=== PATIENT | male | born 2005 | race Caucasian/White ===

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

== ENCOUNTER 2024-06-27 03:59 | Emergency (ER) | payer MEDICAID, SELFPAY ==
[2024-06-27 04:05] VITALS: BP 120/74; BP 123/74; PULSE 76; PULSE 80; RESP 20; TEMP 36.3; O2SAT 97; O2SAT 98; BMI 20.9
--- NOTE | 2024-06-27 04:28 | MHC.EDTECH ---
Patient biba vitals taken ,Patient was change into hospital attire ,all Patient belongings are locked up in decon .Patient had 2 sandwiches and juan john for snack .
--- NOTE | 2024-06-27 04:29 | ED_ITS ---
HPI - Psych General Chief Complaint: Psychiatric Symptoms Stated Complaint: depression Time Seen by Provider: 06/27/24 04:25 Source: patient Mode of arrival: EMS Limitations: no limitations History of Present Illness ED Provider: shawn SENIOR Narrative: Patient's history of depression PTSD substance abuse homeless released from the detention on 06/11 unable to get his life together feel depressed sometimes feels suicidal using drugs homeless asking for the food on arrival has used crack cocaine and Eric dust denies any SI or HI at this time but sometimes he feels that he may overdose feels unsafe Related Data Home Medications ?Medication ?Instructions ?Recorded ?Confirmed No Known Home Meds 10/31/23 06/27/24 Allergies Allergy/AdvReac Type Severity Reaction Status Date / Time bee pollen [bee stings] Allergy Unknown Verified 06/27/24 04:39 haloperidol [From Haldol] AdvReac Swelling Verified 06/27/24 04:39 Review of Systems 2 Review of Systems: Yes all other systems are reviewed and are negative PMFSH Past Medical History Medical History Fentanyl use disorder, moderate Cocaine abuse Asthma Social History Social History Alcohol intake: current Alcohol intake frequency: 0-2 drinks per day Alcohol type: hard liquor Smoked in Last 30 Days: Yes Use of substances other than those prescribed or required for medical reasons: Yes Substance Use Type: Crack/Cocaine Substance Use Frequency: Chronic Longstanding Last Used Substance: Just Prior to Admission Advance Directives: No Advance Directives Information Provided: Yes Do you have a plan to hurt others: No Plan Physical Exam 2 Vital Signs: Vital Signs: Last Vital Signs Temp 97.4 F 06/27/24 04:05 Pulse 76 06/27/24 04:05 Resp 20 06/27/24 04:05 BP 123/74 06/27/24 04:05 Pulse Ox 97 06/27/24 04:05 O2 Del Method Room Air 06/27/24 04:05 BMI result Body Mass Index 20.9 Appearance: Alert. Oriented X3. No acute distress. Anxious Eyes: PERRLA, No Nystagmus ENT: Pharynx normal. Oral Mucosa moist Neck: Normal inspection. Neck supple. CVS: Normal heart rate and rhythm. Pulses normal. Respiratory: No respiratory distress. Equal air entry bilateral, no wheezing/rales/rhonchi Abdomen: Soft and nontender. Bowel sounds are present, no mass palpable, no CVA tenderness Skin: Skin warm and dry. Normal skin color. Normal skin turgor. Extremities: No lower extremity edema. No calf tenderness superficial scratch leona on the left forearm Psych: Anxious denies any hallucination or delusions feels sometimes suicidal no homicidal Neuro: Oriented X 3. No motor deficit. No sensory deficit.No cerebellar signs , cranial nerves II-XII intact Medications Administered Generic Name Dose Route Start Last Admin Trade Name Freq PRN Reason Stop Dose Admin Nicotine Polacrilex 2 mg 06/27/24 05:30 06/27/24 05:51 Nicotine Polacrilex 2 Mg Gum BUCCAL 2 mg Q2H PRN Administration Nicotine Cravings Medical Decision Making Medical Decision Making [facility] Narrative: Patient with hx of depression, PTSD, bipolar disorder, polysubstance abuse comes here for increased depression asking for some help will get care team involved for further evaluation and disposition Lab Data [facility] Lab Attestation statement: I reviewed the patient's lab results. 06/27/24 05:01 06/27/24 05:01 Labs: Lab Results 06/27/24 Range/Units 05:01 WBC 10.0 (4.8-10.8) X10*3/uL RBC 4.92 (4.60-5.80) X10*6/uL Hgb 15.3 (14.0-18.0) g/dl Hct 43.8 (42.0-52.0) % MCV 89.0 (80.0-98.0) fL MCH 31.1 (27.0-33.0) pg MCHC 34.9 (31.0-36.0) g/dl RDW 12.5 (11.0-16.0) % Plt Count 194 (160-400) X10*3/uL MPV 11.0 (9.4-12.4) fL Immature Gran % (Auto) 0.4 (0.0-0.4) % Neut % (Auto) 70.7 (45-73) % Lymph % (Auto) 20.4 (20-40) % [place] % (Auto) 7.5 (2-11) % Eos % (Auto) 0.5 (0-4) % Baso % (Auto) 0.5 (0-2) % Lymph # (Auto) 2.0 (1.2-4.9) X10*3/uL [place] # (Auto) 0.8 (0.1-1.2) X10*3/uL Eos # (Auto) 0.1 (0.0-0.4) X10*3/uL Baso # (Auto) 0.1 (0.0-0.2) X10*3/uL Abs Immat Gran (auto) 0.04 H (0.00-0.03) X10*3/uL Absolute Neuts (auto) 7.0 (2.0-8.3) x10*3/uL Absolute Nucleated RBC 0.000 (0.0-0.012) X10*3/uL Nucleated RBC % (auto) 0.0 (0.0-0.2) /100WBC Sodium 141 (135-145) mmol/L Potassium 4.0 (3.3-5.1) mmol/L Chloride 106 (96-108) mmol/L Carbon Dioxide 26 (22-29) mmol/L Anion Gap 13 (12-20) BUN 12 (9-16) mg/dL Creatinine 1.15 (0.5-1.4) mg/dL Estim Creat Clear Calc 98.6 Estimated GFR > 60 Random Glucose 95 (60-115) mg/dL Calcium 9.9 (8.4-10.2) mg/dL Total Bilirubin 1.1 H (0.0-1.0) mg/dL AST 19 (5-37) U/L ALT 17 (0-40) U/L Alkaline Phosphatase 93 (39-117) U/L Total Protein 7.9 (6.5-8.0) g/dL Albumin 4.8 (3.5-5.0) g/dL Ethyl Alcohol < 10 mg/dL COVID-19 (ELVIE) Negative (Negative) COVID-19 Clin Com See Note Discharge Plan Discharge Clinical Impression: Depression, Suicidal ideation, Polysubstance abuse Patient Disposition: Still a Patient Prescriptions: No Action No Known Home Meds Interventions: [place]-Suicide Risk Severity Scale Last Done: 06/27/24 04:42 Print Language: [place] Citizen
--- NOTE | 2024-06-27 04:46 | PC.NURSE ---
pt [place]CENA from streets, homeless, stating he wants to get his life together. recently released from [facility], says he is starting a new job at the [employer] in [place]. Denying SI/HI to this RN. however, pt requesting outpatient resources for mental health counseling and drug detox. on arrival, security called to bedside for changeover and belongings secured into decon by security. pt began in ED room 8 however was conversing with other psychiatric patient in 6H in hallway and both patients violating privacy. care team called to bedside to provide outpatient resources so that pt could be discharged, however as care team entered room patient was scratching to self harm his forearm and told care team i am going to kill myself Pt then brought into behavioral health pod by security and chargemaster specialist and all belongings/spoon/food removed from patient.
--- NOTE | 2024-06-27 04:46 | PC.NURSE ---
pt [place] from streets, homeless, stating he wants to get his life together. recently released from senior care on 06/11, says he is starting a new job at the [employer] in [place]. Denying SI/HI to this RN. however, pt requesting outpatient resources for mental health counseling and drug detox. on arrival, security called to bedside for changeover and belongings secured into decon by security. pt began in ED room 8 however was conversing with other psychiatric patient in 6H in hallway and both patients violating privacy. care team called to bedside to provide outpatient resources so that pt could be discharged, however as care team entered room patient was using cards to self harm his forearm and told care team i am going to kill myself Pt then brought into behavioral health pod by security and pharmacist in charge and all belongings/spoon/food removed from patient.
--- NOTE | 2024-06-27 04:50 | MHC.CARE ---
T/W was called by pt's RN and was asked to bring OP referral guide to pt as he was being d/c and needed the resources. Once t/w entered the room the pt had superficially scratched his left forearm with his fingernails and stated that he was now suicidal and he self harmed so he needed to Go to [facility] . T/W explained that the CARE Team would see him later this morning and he was brought to the POD. Pt declined the resource guide.
[2024-06-27 05:01] LABS: Basophils Absolute Auto 0.1 X10*3/uL (0.0-0.2); Basophils Percent Auto 0.5 % (0-2); Eosinophils Absolute Auto 0.1 X10*3/uL (0.0-0.4); Eosinophils Percent Auto 0.5 % (0-4); Hematocrit 43.8 % (42.0-52.0); Hemoglobin 15.3 g/dl (14.0-18.0); Imm Gran Abs Auto 0.04 X10*3/uL (0.00-0.03); Imm Gran Pct Auto 0.4 % (0.0-0.4); Lymphocytes Percent Auto 20.4 % (20-40); MANUAL DIFF FLAG NO; Mean Corpuscular HGB Conc 34.9 g/dl (31.0-36.0); Mean Corpuscular Hemoglobin 31.1 pg (27.0-33.0); Monocytes Absolute Auto 0.8 X10*3/uL (0.1-1.2); Monocytes Percent Auto 7.5 % (2-11); Neutrophils Percent Auto 70.7 % (45-73); Platelet Count 194 X10*3/uL (160-400); Red Blood Count 4.92 X10*6/uL (4.60-5.80); Red Cell Distribution Width 12.5 % (11.0-16.0)
[2024-06-27 05:14] LABS: COVID-19 Test Negative (Negative); IDNOW Serial# 152EDE1D
[2024-06-27 05:21] LABS: Alanine Aminotransferase 17 U/L (0-40); Albumin Level 4.8 g/dL (3.5-5.0); Alkaline Phosphatase 93 U/L (39-117); Anion Gap 13 (12-20); Aspartate Amino Transferase 19 U/L (5-37); Bilirubin Total 1.1 mg/dL (0.0-1.0); Blood Urea Nitrogen 12 mg/dL (9-16); Calcium 9.9 mg/dL (8.4-10.2); Carbon Dioxide 26 mmol/L (22-29); Chloride 106 mmol/L (96-108); Creatinine Clr Calc Pharmacy 98.6; Estimated Glomerular Filt Rate > 60; Ethanol < 10 mg/dL; Glucose Random 95 mg/dL (60-115); Sodium 141 mmol/L (135-145); Total Protein 7.9 g/dL (6.5-8.0)
[2024-06-27] MEDS: Nicotine Polacrilex 2 MG GUM BUCCAL (05:51)
[2024-06-27 10:39] VITALS: BP 123/74; PULSE 76; RESP 20; TEMP 36.3; O2SAT 97
== END 2024-06-27 10:40 | disposition home or self-care (01) ==
PROVIDERS: Emergency Provider Internal Medicine
DX: F33.1 Major depressive disorder, recurrent, moderate (principal); R45.851 Suicidal ideations; F11.10 Opioid abuse, uncomplicated; F14.10 Cocaine abuse, uncomplicated; Z71.51 Drug abuse counseling and surveillance of drug abuser; Z11.52 Encounter for screening for COVID-19; Z79.899 Other long term (current) drug therapy
CPT/HCPCS: 36415; 80053; 80307; 85025; 87635; 99284; S9485

== ENCOUNTER 2025-02-24 18:38 | Emergency (ER) | payer MEDICAID, SELFPAY ==
[2025-02-24 18:59] VITALS: BP 121/61; PULSE 108; RESP 18; TEMP 36.6; O2SAT 98; BMI 26.1
--- NOTE | 2025-02-24 19:18 | PC.NURSE ---
Section [address] Suicidal, asking police & staff to kill him in various ways (was asking production assistant to shoot him with a gun, asked this RN to give him Haldol which he is allergic to, and was noted to be picking at his wounds from cutting himself). Changeover completed with security present. All belongings searched. Playing cards were examined and are allowed to remain with the patient. Patient is hyperverbal, but otherwise remains in behavioral control. Watching TV, asking for large amounts of food/beverages. 1:1 sitter, requests female. This patient stated that they prefer to go by she/her pronouns, and prefers to be called Tiffany or [place] . Belongings placed in [place]. Awaiting ED provider evaluation.
[2025-02-24 20:07] LABS: MANUAL DIFF FLAG NO
[2025-02-24 20:08] LABS: Basophils Percent Auto 0.4 % (0-2); Eosinophils Percent Auto 0.5 % (0-4); Hematocrit 40.2 % (42.0-52.0); Hemoglobin 14.1 g/dl (14.0-18.0); Imm Gran Abs Auto 0.02 X10*3/uL (0.00-0.03); Imm Gran Pct Auto 0.3 % (0.0-0.4); Lymphocytes Absolute Auto 1.5 X10*3/uL (1.2-4.9); Lymphocytes Percent Auto 19.9 % (20-40); Mean Corpuscular HGB Conc 35.1 g/dl (31.0-36.0); Mean Corpuscular Hemoglobin 31.2 pg (27.0-33.0); Mean Corpuscular Volume 88.9 fL (80.0-98.0); Mean Platelet Volume 11.1 fL (9.4-12.4); Monocytes Absolute Auto 0.5 X10*3/uL (0.1-1.2); Monocytes Percent Auto 6.4 % (2-11); Neutrophils Absolute Auto 5.6 x10*3/uL (2.0-8.3); Neutrophils Percent Auto 72.5 % (45-73); Platelet Count 180 X10*3/uL (160-400); Red Blood Count 4.52 X10*6/uL (4.60-5.80); Red Cell Distribution Width 12.4 % (11.0-16.0); White Blood Count 7.7 X10*3/uL (4.8-10.8)
[2025-02-24 20:23] LABS: Acetaminophen LAB < 3 mcg/mL (<30); Alanine Aminotransferase 54 U/L (0-40); Albumin Level 4.5 g/dL (3.5-5.0); Alkaline Phosphatase 89 U/L (39-117); Anion Gap 13 (12-20); Aspartate Amino Transferase 34 U/L (5-37); Bilirubin Total 0.5 mg/dL (0.0-1.0); Blood Urea Nitrogen 15 mg/dL (9-16); Calcium 9.4 mg/dL (8.4-10.2); Carbon Dioxide 27 mmol/L (22-29); Chloride 104 mmol/L (96-108); Creatinine Clr Calc Pharmacy 121.8; Estimated Glomerular Filt Rate > 60; Ethanol < 10 mg/dL; Glucose Random 132 mg/dL (60-115); Salicylate < 5.0 mg/dL (15-30); Sodium 140 mmol/L (135-145); Total Protein 7.3 g/dL (6.5-8.0)
[2025-02-24] MEDS: LORazepam 1 MG TABLET 2 MG PO (21:05)
--- NOTE | 2025-02-24 21:13 | MHC.EDTECH ---
pt stated to this tech: you are retarded, go to your unit , pt keeps throwing water cups all over room, aggressive and screaming, calling me retarded
--- OUTSIDE RECORDS SUMMARY | 2025-02-24 21:44 | XMS_ITS | Encounter Summary ---
Author Organization [employer] Address [address] [facility] 7[address] [place] [address] Care Team Providers Care Donation Worker Name Role Phone Eufemia Hercules MD Primary Care Pro vider Encounter Details Date Type Department Care Team (Late st Contact Info) Description 02/24/2025 Patient Outreach [facility] ([facility]) Department [address] [facility] [address] [place] [address] Gena Dominique Social History Tobacco Use Types Packs/Day Years Used Date Smoking Tobacco: Every Day Cigarettes Smokeless Tobacco: Never Comments:Started since 17 ye ars of age -1/2 PQT a day -not interested in stopping Depression Answer Date Recorded Patient Health Questionnaire-9 Score 9 01/05/2025 Patient Health Questionnaire-9 Score 9 01/05/2025 Last PHQ-9: Questionnaire Data Not on file 0 01/05/2025 Housing Stability Answer Date Recorded What is your housing situation today? I have nerissa briones 12/30/[address] you li ve. Do you have problems with any of the following? None of the above 12/30/2024 Food Insecurity Answer Date Recorded Within the past 12 months, y ou worried that your food would run out before you got money to buy more: Never True 12/30/2024 Within the past 12 months,th e food you bought just didn't last and you didn't have enough money to get more: Never True Transportation Answer Date Recorded In the past 12 months, has l ack of transportation kept you from medical appts, meetings, work or from getting things needed for daily living? No 12/30/2024 Utilities Answer Date Recorded In the past 12 months, has t he electric, gas, oil or water company threatened to shut off services in your home? No 12/30/2024 Depression Answer Date Recorded Patient Health Questionnaire-2 Score 2 01/05/2025 Internet Access Answer Date Recorded Internet Access Q1 No 12/30/2024 Internet Access Q2 Not on file 12/30/2024 Sex and Gender Information Value Date Recorded Sex Assigned at Male 07/03/2023 9:55 AM EDT Legal Sex Male 1:54 PM EDT Gender Identity Non-Binary 12/30/2024 9:48 AM EDT Sexual Orientation Bisexual 12/30/2024 9: 48 AM EDT documented as of this encounter Plan of Treatment Upcoming Encounters Date Type Department Care Team (Late st Contact Info) Description 03/02/2025 9:30 AM EDT Office Visit [facility] [address] [place] [address] Kylie Forbes MD [address] [place] [phone] documented as of this encounter Goals Goal Patient Goal Type Associated Problems Recent Progress Patient-Stated? Author Take your medication every day Lifestyle No Valerio Vazquez, RN documented as of this encounter Visit Diagnoses Not on filedocumented in this encounter Additional Health Concerns Assessment Noted Time PHQ-9 Depression Total Score: 9 01/06/20 25 4:35 PM EDT documented as of this encounter Care Teams Donation Worker Relationship Specialty Start Date End Date Eufemia Hercules MD [address] [place] [phone] PCP - General Internal Medicine 07/03/23 documented as of this encounter
--- OUTSIDE RECORDS SUMMARY | 2025-02-24 21:44 | XMS_ITS | Encounter Summary ---
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 Social History Tobacco Use Types Packs/Day Years Used Date Smoking Tobacco: Never Assessed Sex and Gender Information Value Date Recorded Sex Assigned at Not on file Legal Sex Male 10:04 AM EDT Gender Identity Not on file Sexual Orientation Not on file documented as of this encounter Plan of Treatment Not on file documented as of this encounter Procedures Procedure Name Priority Date/Time Associated Diagnosis Comments LIPID PANEL WITH REFLEX TO DIRECT LDL Routine 01/22/2025 7:00 AM EDT Other intermediate teacher (current) drug therapy CBC WITH AUTO DIFFERENTIAL Routine 01/22/2025 7:00 AM EDT Other penitentiary (current) drug therapy CBC AND DIFFERENTIAL Routine 01/22/2025 7:00 AM EDT Other intermediate teacher (current) drug therapy HEMOGLOBIN A1C Routine 01/22/2025 7:00 AM EDT Other penitentiary (current) drug therapy COMPREHENSIVE METABOLIC PANEL Routine 01/22/2025 7:00 AM EDT Other intermediate teacher (current) drug therapy documented in this encounter Results * (ABNORMAL) CBC auto differential (01/22/2025 7:00 AM EDT) WBC 6.6 4.8 - 10.8 K/mcL LAB HEMETOLOGY METHOD 01/22/2025 10:23 AM [facility] RBC 4.70 4.50 - 5.50 M/mcL LAB HEMETOLOGY METHOD 01/22/2025 10:23 AM [facility] Hemoglobin 14.4 13.5 - 17.5 g/dL LAB HEMETOLOGY METHOD 01/22/2025 10:23 AM [facility] Hematocrit 42.7 42.0 - 54.0 % LAB HEMETOLOGY METHOD 01/22/2025 10:23 AM [facility] MCV 91.6 79.0 - 98.0 FL LAB HEMETOLOGY METHOD 01/22/2025 10:23 AM [facility] MCH 30.9 27.0 - 32.0 pcg LAB HEMETOLOGY METHOD 01/22/2025 10:23 AM [facility] MCHC 33.7 32.0 - 37.0 g/dL LAB HEMETOLOGY METHOD 01/22/2025 10:23 AM [facility] RDW 12.9 11.0 - 15.0 % LAB HEMETOLOGY METHOD 01/22/2025 10:23 AM [facility] Platelets 177 130 - 400 K/mcL LAB HEMETOLOGY METHOD 01/22/2025 10:23 AM [facility] MPV 12.4(H) 7.0 - 11.0 FL LAB HEMETOLOGY METHOD 01/22/2025 10:23 AM [facility] NRBC 0.0 <1.0 % LAB HEMETOLOGY METHOD 01/22/2025 10:23 AM [facility] NRBC Absolute 0.00 <0.10 K/mcL LAB HEMETOLOGY METHOD 01/22/2025 10:23 AM [facility] Neutrophils Relative 67.1 % LAB HEMETOLOGY METHOD 01/22/2025 10:23 AM [facility] Lymphocytes Relative 21.5 % LAB HEMETOLOGY METHOD 01/22/2025 10:23 AM [facility] Monocytes Relative 9.8 % LAB HEMETOLOGY METHOD 01/22/2025 10:23 AM [facility] Eosinophils Relative 0.6 % LAB HEMETOLOGY METHOD 01/22/2025 10:23 AM [facility] Basophils Relative 0.5 % LAB HEMETOLOGY METHOD 01/22/2025 10:23 AM [facility] Immature Granulocytes Relative 0.5 % LAB HEMETOLOGY METHOD 01/22/2025 10:23 AM [facility] Neutrophils Absolute 4.41 1.50 - 7.00 K/mcL LAB HEMETOLOGY METHOD 01/22/2025 10:23 AM [facility] Lymphocytes Absolute 1.41 1.00 - 5.00 K/mcL LAB HEMETOLOGY METHOD 01/22/2025 10:23 AM [facility] Monocytes Absolute 0.64 0.20 - 1.00 K/mcL LAB HEMETOLOGY METHOD 01/22/2025 10:23 AM [facility] Eosinophils Absolute 0.04 0.00 - 0.50 K/mcL LAB HEMETOLOGY METHOD 01/22/2025 10:23 AM [facility] Basophils Absolute 0.03 0.00 - 0.20 K/mcL LAB HEMETOLOGY METHOD 01/22/2025 10:23 AM [facility] Immature Granulocytes Absolute 0.03 0.00 - 0.03 K/mcL LAB HEMETOLOGY METHOD 01/22/2025 10:23 AM [facility] Blood Venous blood specimen / Unknown Venipuncture / Unknown 01/22/2025 7:00 AM EDT 01/22/2025 10:06 AM EDT [facility] Briones LAB BLOOD ORDERABLES Final Resul t Performing Organization Address [facility]/ZIP Co de Phone Number [facility] [address] [place] [address], [place] [phone] * Hemoglobin A1c (01/22/2025 7:00 AM EDT) Pathologist [facility] Hemoglobin A1C 5.1 <6.5 % LAB CHEMISTRY METHOD 01/23/2025 1:56 PM EDT [facility] Mean Bld Glu Estim. 100 mg/dL LAB CHEMISTRY METHOD 01/23/2025 1:56 PM EDT [facility] Blood Venous blood specimen / Unknown Venipuncture / Unknown 01/22/2025 7:00 AM EDT 01/22/2025 10:06 AM EDT [facility] LAB BLOOD ORDERABLES Final Resul t Performing Organization Address [facility]/ZIP Co de Phone Number [facility] [address] [place] [address], [place] [phone] * Lipid panel with reflex to direct LDL (01/22/2025 7:00 AM EDT) Cholesterol 155 0 - 200 mg/dL LAB CHEMISTRY METHOD 01/22/2025 10:58 AM EDT [facility] Triglycerides 134 0 - 150 mg/dL LAB CHEMISTRY METHOD 01/22/2025 10:58 AM EDT [facility] HDL 62 >=40 mg/dL LAB CHEMISTRY METHOD 01/22/2025 10:58 AM EDT [facility] LDL Calculated 66 0 - 100 mg/dL LAB CHEMISTRY METHOD 01/22/2025 10:58 AM EDT [facility] VLDL Cholesterol Geovanny 26.8 mg/dL LAB CHEMISTRY METHOD 01/22/2025 10:58 AM EDT [facility] Non HDL Chol. (LDL+VLDL) 93 <145 mg/dL LAB CHEMISTRY METHOD 01/22/2025 10:58 AM [facility] Chol/HDL Ratio 2.5 0.0 - 4.4 LAB CHEMISTRY METHOD 01/22/2025 10:58 AM [facility] Blood Venous blood specimen / Unknown Venipuncture / Unknown 01/22/2025 7:00 AM EDT 01/22/2025 10:06 AM EDT [facility] LAB BLOOD ORDERABLES Final Resul t [facility] [address] [place] [address], * Comprehensive metabolic panel (01/22/2025 7:00 AM EDT) Sodium 138 133 - 145 mmol/L LAB CHEMISTRY METHOD 01/22/2025 10:58 AM [facility] Potassium 4.2 3.5 - 5.5 mmol/L LAB CHEMISTRY METHOD 01/22/2025 10:58 AM [facility] Chloride 105 96 - 110 mmol/L LAB CHEMISTRY METHOD 01/22/2025 10:58 AM [facility] CO2 29 21 - 32 mmol/L LAB CHEMISTRY METHOD 01/22/2025 10:58 AM [facility] Anion Gap 4 3 - 11 LAB CHEMISTRY METHOD 01/22/2025 10:58 AM [facility] Glucose 79 70 - 100 mg/dL LAB CHEMISTRY METHOD 01/22/2025 10:58 AM [facility] BUN 15 5 - 25 mg/dL LAB CHEMISTRY METHOD 01/22/2025 10:58 AM [facility] Creatinine 0.97 0.70 - 1.30 mg/dL LAB CHEMISTRY METHOD 01/22/2025 10:58 AM [facility] eGFR 115 >=60 mL/min/1. 73m2 LAB CHEMISTRY METHOD 01/22/2025 10:58 AM [facility] Comment:Calculation based on the??Chronic Kidney Disease Epidemiology Collaboration (CKD-EPI) equation refit??without adjustment for race. BUN/Creatinine Ratio 15.5 LAB CHEMISTRY METHOD 01/22/2025 10:58 AM [facility] Calcium 10.2 8.5 - 10.5 mg/dL LAB CHEMISTRY METHOD 01/22/2025 10:58 AM [facility] AST (SGOT) 17 10 - 42 unit/L LAB CHEMISTRY METHOD 01/22/2025 10:58 AM [facility] ALT (SGPT) 44 10 - 60 unit/L LAB CHEMISTRY METHOD 01/22/2025 10:58 AM [facility] Alkaline Phosphatase 91 42 - 121 unit/L LAB CHEMISTRY METHOD 01/22/2025 10:58 AM [facility] Total Protein 7.8 6.0 - 8.0 g/dL LAB CHEMISTRY METHOD 01/22/2025 10:58 AM [facility] Albumin 4.3 3.2 - 5.0 g/dL LAB CHEMISTRY METHOD 01/22/2025 10:58 AM [facility] Total Bilirubin 0.8 0.0 - 1.4 mg/dL LAB CHEMISTRY METHOD 01/22/2025 10:58 AM [facility] Blood Venous blood specimen / Unknown Venipuncture / Unknown 01/22/2025 7:00 AM EDT 01/22/2025 10:06 AM EDT Machelle Briones LAB BLOOD ORDERABLES Final Resul t [facility] [address] [place] [address], documented in this encounter Visit Diagnoses Diagnosis 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
--- OUTSIDE RECORDS SUMMARY | 2025-02-24 21:44 | XMS_ITS | Encounter Summary ---
Author Organization [employer] Address [address] [facility] [address] [place] [address] Care Team Providers Care Creamery Worker Name Role Phone Eufemia Hercules MD Primary Care Pro vider Reason for Visit * Reason Comments Care Coordination CM/CHW outreach Encounter Details Date Type Department Care Team (Latest Contact Info) Description 02/20/2025 Patient Outreach [facility] [address] [place] [address] Eufemia Hercules MD [address] [place] [address] Care Coordination (CM/CHW outreach) Social History Tobacco Use Types Packs/Day Years [...] is your housing situation today? I have nerissamaritza briones 12/30/[address] you [...] t he electric, gas, oil or water [employer] threatened to shut off services in your [...] AM EDT documented as of this encounter Progress Notes * Leticia Lazcano - 02/20/2025 11:50 AM EDT CHW Leticia Lazcano sent an email to point of contact Disha Grace at [facility] where patient was admitted. CHW will reach out within 2 days again if contact is not made. documented in this encounter Plan of Treatment Upcoming Encounters Date Type Department Care Team (Late st Contact Info) Description 03/02/2025 9:30 AM EDT Office Visit [facility] [address] [place] [address] Kylie Forbes MD [address] [place] [address] documented as of this encounter Goals Goal Patient Goal Type Associated Problems Recent Progress Patient-Stated? Author Take your medication every day Lifestyle No Valerio Vazquez, GERONIMO documented as of this encounter Visit Diagnoses Not on filedocumented in this encounter Additional Health Concerns Assessment Noted Time PHQ-9 Depression Total Score: 9 01/06/20 25 4:35 PM EDT documented as of this encounter Care Teams Creamery Worker Relationship Specialty Start Date End Date Eufemia Hercules MD [address] [place] [phone] PCP - General Internal Medicine 07/03/23 documented as of this encounter
--- OUTSIDE RECORDS SUMMARY | 2025-02-24 21:44 | XMS_ITS | Encounter Summary ---
Author Organization [facility] Address [address] [place] [address] Care Team Providers Care Cigar Machine Feeder Name Role Phone Jacque Phan Primary Care Provider [phone] Encounter Details Date Type Department Care Team (Late st Contact Info) Description 01/22/2025 Lab Requisition [facility] - Main Lab [address] [facility] [place] [address] Machelle Briones Social History Tobacco Use Types Packs/Day Years Used Date Smoking Tobacco: Never Assessed Sex and Gender Information Value Date Recorded Sex Assigned at Not on file Legal Sex Male 10:04 AM EDT Gender Identity Not on file Sexual Orientation Not on file documented as of this encounter Plan of Treatment Not on file documented as of this encounter Visit Diagnoses Not on filedocumented in this encounter Care Teams Cigar Machine Feeder Relationship Specialty Start Date End Date Jacque Phan [facility] [place] [address] PCP - General Family Medicine 01/24/25 documented as of this encounter
--- OUTSIDE RECORDS SUMMARY | 2025-02-24 21:44 | XMS_ITS | Clinical Summary ---
Author Organization [employer] Address [address] [facility] 7t [place] [address] Care Team Providers Care Arborist Representative Name Role Phone Eufemia Hercules MD Primary Care Pro vider Allergies No known active allergies Medications * This document contains information received from the source organization and may not represent a complete record from that organization. Buprenorphine HCl-Naloxone HCl (Suboxone) 8-2 MG SL filmIndications :Uncomplicated opioid use Place 1 Film under the tongue Once per day for 7 days. In the morning. 7 Film Active prazosin (Minipress) 1 MG capsule Take 3 mg by mouth at bedtime. Active traZODone (Desyrel) 150 MG tablet Take 150 mg by mouth at bedtime. Active gabapentin (Neurontin) 100 MG capsule Take 1 capsule by mouth at bedtime. Active naloxone (Narcan) 4 mg/0.1 mL nasal spray Administer 4 mg into affected nostril(s) if needed for opioid reversal. May repeat every 2-3 minutes if needed, alternating nostrils, until medical assistance becomes available. Active chlorproMAZINE (Thorazine) 100 MG tablet Take 3 tablets by mouth in the morning and 3 tablets in the evening. Active OLANZapine (ZyPREXA) 15 MG tablet Take 1 tablet by mouth at bedtime. Active diphenhydrAMINE (BENADryl) 50 MG capsule Take 1 capsule by mouth every 6 (six) hours. 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 Date Type Department Care Team Description 02/24/2025 Patient Outreach [facility] () Department [address] [place] [phone] Gena Dominique 02/22/2025 Telephone [facility]INE [address] [place] [phone] Rebeca Bauer PharmD 02/20/2025 Patient Outreach [facility] [address] [place] [phone] Eufemia Hercules MD Care Coordination (CM/CHW outreach) 02/20/2025 Patient Outreach [facility] [address] [place] [phone] Eufemia Hercules MD Care Coordination (CM/CHW outreach) 02/16/2025 Patient Outreach [address] [address] Eufemia Hercules MD Care Coordination (CM/CHW outreach) 02/16/2025 Patient Outreach [facility] [address] [place] [phone] Eufemia Hercules MD Care Coordination (W Chart Review) 02/16/2025 Patient Outreach [address] [address] Eufemia Hercules MD Care Management (C3- chart review) 02/16/2025 Patient Outreach [facility] [address] [place] [phone] Eufemia Hercules MD 02/16/2025 Patient Outreach [facility] () Department [address] [place] [phone] Gena Dominique 02/16/2025 Patient Outreach [facility] Care [facility] () Department [address] [place] [phone] Gena Dominique 02/16/2025 Patient Outreach [facility] [address] [place] [phone] Eufemia Hercules MD 02/16/2025 Telephone [facility] [address] [place] [address] Eufemia Hercules MD Error (VOID this visit) 02/15/2025 [facility] Outreach [facility] Department [address] [place] [phone] DominiqueGena garcia 02/13/2025 Patient Outreach [facility] Department [address] [place] [phone] Clare Lpóez [facility] 02/13/2025 Patient Outreach [facility] Department [address] [place] [address] DominiqueGena garcia 02/13/2025 Patient Outreach [facility] Department [address] [place] [address] DominiqueeGna garcia 02/10/2025 Patient Outreach [facility] [address] [place] [address] Eufemia Hercules MD Transition Of Care (Tcm) (HDF unscheduled unable to LVM ) 02/09/2025 Patient Outreach [facility] Department [address] [place] [address] Humphrey, Gabriella, HC 02/08/2025 Patient Outreach [facility] Department [address] [place] [address] Yin, Gabriella, LMHC 02/06/2025 Patient Outreach [facility] Department [address] [place] [address] Yin, Gabriella, HC 02/06/2025 Patient Outreach [facility] Department [address] [place] [address] DominiqueGena garcia 02/06/2025 Patient Outreach [facility] Department [address] [place] [address] Yin, Gabriella, LMHC 02/03/2025 Patient Outreach [facility] Department [address] [place] [address] DominiqueKatelyn ruizzy 02/03/2025 Patient Outreach [facility] Department [address] [place] [address] DominiqueKatelyn ruizzy 01/31/2025 Patient Outreach [facility] Department [address] [place] [address] Yin, Gabriella, LMHC 01/31/2025 Patient Outreach [facility] Department [address] [place] [address] Yin, Gabriella, LMHC 01/27/2025 Patient Outreach [facility] Department [address] [place] [address] DominiqueGena garcia 01/27/2025 Patient Outreach [facility] [address] [place] [address] Eufemia Hercules MD Care Coordination ([facility] Program) 01/27/2025 Patient Outreach [facility] Department [address] [place] [address] DominiqueKatelyn ruizzy 01/27/2025 Patient Outreach [facility] Department [address] [place] [address] Yin, Gabriella, LMHC 01/24/2025 Patient Outreach [facility] Department [address] [place] [address] Yin, Gabriella, LMHC 01/24/2025 Patient Outreach [facility] Department [address] [place] [address] Yin, Gabriella, LMHC 01/24/2025 Patient Outreach [facility] Department [address] [place] [address] Yin, Gabriella, LMHC 01/20/2025 Patient Outreach [facility] Department [address] [place] [address] Nehal Mortensen LCSW 01/18/2025 Travel 01/12/2025 2:15 PM EDT Office Visit [facility] [place] [address] Meka Pradhan MD Uncomplicated opioid use (Primary Dx) 01/12/2025 Refill [facility] [place] [address] Meka Pradhan MD Uncomplicated opioid use 01/12/2025 Travel 01/05/2025 10:30 AM EDT Clinical Support [facility] [place] [address] Valerio Vazquez RN Uncomplicated opioid use (Primary Dx) 01/05/2025 Refill [facility] [place] [address] Meka Pradhan MD Uncomplicated opioid use 01/05/2025 Travel 01/04/2025 Telephone [facility] [place] [address] Valerio Vazquez RN 01/02/2025 Telephone [facility] [address] [place] [phone] Michelle Nava, RN OBAT Communication 12/30/2024 10:15 AM EDT Office [address] [place] [address] Akin Ford MD Uncomplicated opioid use (Primary Dx); Tobacco use disorder 12/30/2024 9:00 AM EDT Office Visit [facility] [address] [place], [place] [address] [address] Michelle Nava, RN History of substance use (Primary Dx); Healthcare maintenance 12/30/2024 Refill [facility] [place] [address] Meka Pradhan MD Uncomplicated opioid use 12/30/2024 Patient Outreach [address] [address] Guilherme Massey Recovery Supports 12/30/2024 Travel 12/23/2024 Population Health Risk Score [facility] Department [address] [place] [address], [place] [address] Provider, Population Health Generic from Last 3 Months Immunizations Immunization Administration Dates Next Due Influenza injectable quadrivalent preservative f ree 12/19/2022 Family History Medical History Relation Name Comments DM2 Maternal Grandmother Relation Name Status Comments Maternal Grandmother Social History Tobacco Use Types Packs/Day Years Used Date Smoking Tobacco: Every Day Cigarettes Smokeless Tobacco: Never Tobacco Cessation:Ready to Q uit: Not Asked; Counseling Given: Not Answered Comments:Started since 17 years of age -1/2 PQT a day -not [...] Orientation Bisexual 12/30/2024 9: 48 AM EDT Last Filed Vital Signs Vital Sign Reading Time Taken Comments Blood Pressure 137/91 12/30/2024 10:36 AM EDT Pulse 97 12/30/2024 10:36 AM EDT Temperature 36.3 ??C (97.3 ??F) 12/30/2024 1 0:36 AM EDT Respiratory Rate 20 07/03/2023 9:11 AM EDT Oxygen Saturation 99% 07/03/2023 9:11 AM EDT Inhaled Oxygen Concentration - - Weight 73.4 kg (161 lb 12.8 oz) 07/03/2023 9:11 AM EDT Height 180.3 cm (5' 11 ) 07/03/2023 9:11 AM EDT Body Mass Index 22.57 07/03/2023 9:11 AM EDT Plan of Treatment Upcoming Encounters Date Type Department Care Team (Late st Contact Info) Description 03/02/2025 9:30 AM EDT Office Visit [facility] [address] [place], [place] [phone] Kylie Forbes MD [address] [place] [address] Health Maintenance Due Date Last Done Comments Chlamydia and Gonorrhea Screening 2004 Family Planning (PISQ) 2019 HPV Vaccines (1 - 3-dose series) 2019 Meningococcal B Vaccine (1 o f 2 - Standard) 2020 DTaP/Tdap/Td Vaccines (1 - Tdap) 2023 Hepatitis B Vaccines (1 of 3 - 19+ 3-dose series) 2023 Pneumococcal Vaccine: Pediatrics (0 to 5 Years) and At-Risk Patients (6 to 49) Years) (1 of 2 - PCV) 2023 COVID-19 Vaccine ( - 2023-2 5 season) 2024 Influenza Vaccine (#1) 2024 12/19/2022 Alcohol/Substance Use Screening 12/30/2025 12/30/2024 SDOH Screening 12/30/2025 12/30/2024 Tobacco Screening 12/30/2025 12/30/2024 Depression Screening 01/05/2026 01/05/2025, 01/05/2025 Lipid Panel 07/03/2028 07/03/2023 Zoster Vaccines (1 of 2) 2054 RSV Patients and Patients Aged 60 years or older (1 - 1-dose 75+ series) 2079 HIV Screening Completed 07/03/2023 Hepatitis C Screening Completed 07/03/2023 HIB Vaccines Aged Out No longer eligi ble based on patient's age to complete this topic Hepatitis A Vaccines Aged Out No long er eligible based on patient's age to complete this topic IPV Vaccines Aged Out No longer eligi ble based on patient's age to complete this topic Meningococcal Vaccine Aged Out No josé ramu eligible based on patient's age to complete this topic RSV under 20 months Aged Out No longe r eligible based on patient's age to complete this topic Rotavirus Vaccines Aged Out No longer eligible based on patient's age to complete this topic Goals Goal Patient Goal Type Associated Problems Recent Progress Patient-Stated? Author Take your medication every day Lifestyle No Valerio Vazquez, hem marker Procedure Name Priority Date/Time Associated Diagnosis Comments ACETAMINOPHEN LEVEL Routine 02/24/2025 7 :59 PM EDT SALICYLATE Routine 02/24/2025 7:59 PM EDT ETHANOL Routine 02/24/2025 7:59 PM EDT COMPREHENSIVE METABOLIC PANEL Routine 02/24/2025 7:59 PM EDT CBC WITH AUTO DIFFERENTIAL Routine 02/24/2025 7:59 PM EDT POCT MAIK-14 URINE DRUG SCREEN Routine 01/12/2025 2:23 PM EDT Uncomplicated opioid use POCT MAIK-14 URINE DRUG SCREEN Routine 01/05/2025 10:48 AM EDT Uncomplicated opioid use POCT MAIK-14 URINE DRUG SCREEN Routine 12/30/2024 10:35 AM EDT Uncomplicated opioid use HEPATITIS C AB W/REFL TO HCV RNA, QN, PCR Routine 07/03/2023 11:35 AM EDT Health care maintenance HIV ANTIBODY/ANTIGEN ([facility]) Routine 07/03/2023 11:35 AM EDT LIPID PANEL, STANDARD Routine 07/03/2023 11:35 AM EDT Health care maintenance from Last 3 Months or Most Recently Relevant to Health Maintenance Results * Ethanol (02/24/2025 7:59 PM EDT) Pathologist [facility] ETHANOL (MG/DL) IN SER/PLAS <10 mg/dL [facility] Comment:Serum/plasma ethanol results are to be used formedical/treatment purposes only. 02/24/2025 7:59 PM EDT 02/24/2025 8:05 PM EDT us Generic External Data Provider LAB BLOOD ORDERAB LES Final Result [facility] [address] [place] [phone] [phone] * (ABNORMAL) CBC auto differential (02/24/2025 7:59 PM EDT) Pathologist [facility] White Blood Count 7.7 4.8 - 10.8 X10*3/uL [facility] Red Blood Count 4.52(L) 4.60 - 5.80 X10*6/uL [facility] Hemoglobin 14.1 14.0 - 18.0 g/dl [facility] Hematocrit 40.2(L) 42.0 - 52.0 % [facility] Mean Corpuscular Volume 88.9 80.0 - 98.0 fL [facility] Mean Corpuscular Hemoglobin 31.2 27.0 - 33.0 pg [facility] Mean Corpuscular HGB Conc 35.1 31.0 - 36.0 g/dl [facility] Red Cell Distribution Width 12.4 11.0 - 16.0 % [facility] Platelet Count 180 160 - 400 X10*3/uL [facility] Mean Platelet Volume 11.1 9.4 - 12.4 fL [facility] Neutrophils Percent Auto 72.5 45 - 73 % [facility] Imm Gran Pct Auto 0.3 0.0 - 0.4 % [facility] Lymphocytes Percent Auto 19.9(L) 20 - 40 % [facility] Monocytes Percent Auto 6.4 2 - 11 % [facility] Eosinophils Percent Auto 0.5 0 - 4 % [facility] Basophils Percent Auto 0.4 0 - 2 % [facility] NRBC Pct Auto 0.0 0.0 - 0.2 /100WBC [facility] Neutrophils Absolute Auto 5.6 2.0 - 8.3 x10*3/uL [facility] Imm Gran Abs Auto 0.02 0.00 - 0.03 X10*3/uL [facility] Lymphocytes Absolute Auto 1.5 1.2 - 4.9 X10*3/uL [facility] Monocytes Absolute Auto 0.5 0.1 - 1.2 X10*3/uL [facility] Eosinophils Absolute Auto 0.0 0.0 - 0.4 X10*3/uL [facility] Basophils Absolute Auto 0.0 0.0 - 0.2 X10*3/uL [facility] NRBC Abs Auto 0.000 0.0 - 0.012 X10*3/uL [facility] 02/24/2025 7:59 PM EDT 02/24/2025 8:05 PM EDT us Generic External Data Provider LAB BLOOD ORDERAB LES Final Result [facility] [address] [place] [address] [phone] * Acetaminophen level (02/24/2025 7:59 PM EDT) Acetaminophen LAB <3 <30 mcg/mL [facility] 02/24/2025 7:59 PM EDT 02/24/2025 8:05 PM EDT us Generic External Data Provider LAB BLOOD ORDERAB LES Final Result Performing Organization Address City/[facility]/ZIP Co de Phone Number [facility] [address] [place] [address] [phone] * (ABNORMAL) Salicylate (02/24/2025 7:59 PM EDT) Salicylate <5.0(L) 15 - 30 mg/dL [facility] 02/24/2025 7:59 PM EDT 02/24/2025 8:05 PM EDT Generic External Data Provider LAB BLOOD ORDERAB LES Final Result Performing Organization Address [facility] Co de Phone Number [facility] [address] [place] [address] [phone] * (ABNORMAL) Comprehensive Metabolic Panel (02/24/2025 7:59 PM EDT) Sodium 140 135 - 145 mmol/L [facility] Potassium 4.0 3.3 - 5.1 mmol/L [facility] Chloride 104 96 - 108 mmol/L [facility] Carbon Dioxide 27 22 - 29 mmol/L [facility] Anion Gap 13 12 - 20 [facility] Urea Nitrogen (BUN) 15 9 - 16 mg/dL [facility] Creatinine, Serum 1.03 0.5 - 1.4 mg/dL [facility] Creatinine Clr Calc Pharmacy 121.8 [facility] Comment:eGFR (calculated fro m the MDRD study equation) and eCrCl(calculated from the Cockcroft-Gault equation) are based ondifferent parameters and may not yield comparable results.If eCrCl result is absurd, please check patient'sheight/weight. Estimated Glomerular Filt Rate >60 [facility] Comment:Chronic Kidney Disea se: Estimated GFR < 60 mL/min/1.86c7Meakum Kidney Disease: Estimated GFR < 15 mL/min/1.73m2 Glucose 132(H) 60 - 115 mg/dL [facility] Calcium 9.4 8.4 - 10.2 mg/dL [facility] Bilirubin, Total 0.5 0.0 - 1.0 mg/dL [facility] Aspartate Amino Transferase 34 5 - 37 U/L [facility] Alanine Aminotransferase 54(H) 0 - 40 U/L [facility] Total Protein 7.3 6.5 - 8.0 g/dL [facility] Albumin Level 4.5 3.5 - 5.0 g/dL [facility] Alkaline Phosphatase 89 39 - 117 U/L [facility] 02/24/2025 7:59 PM EDT 02/24/2025 8:05 PM EDT Generic External Data Provider LAB BLOOD ORDERAB LES Final Result [facility] [address] [place] [phone] * POCT MAIK-14 Urine Drug Screen (01/12/2025 2:23 PM EDT) Only the most recent of3 resultswithin the time period is included. Pathologist [facility] THC Negative Cocaine Screen, Urine Negative Opiate Screen, Urine Negative Methamphetamine Screen Urine Negative Amphetamine Screen, Urine Negative Benzodiazepines Screen, Urine Negative Barbiturate Screen, Urine Negative Methadone Screen, Urine Negative Buprenophine Screen, Urine Positive TCA, Urine Positive MDMA Urine Negative ng/mL Oxycodone Screen, Urine Negative Phencyclidine (PCP), Urine Negative Fentanyl, Urine Negative Urine Urine specimen obtained by clean catch procedure / Unknown 01/12/2025 2:23 PM EDT Meka Pradhan MD POINT OF CARE TEST ENTER/JAYLEN T ORDERABLES Final Result * HIV Ab/Ag ([facility]) (07/03/2023 11:35 AM EDT) Pathologist [facility] HIV AB/AG Nonreactive Nonreactive [facility] Comment:HIV-1 p24 Ag and/or HIV-1/HIV-2 Ab not detected.A test result that is nonreactive does not exclude thepossibility of exposure to or infection with HIV-1 and/orHIV-2. Nonreactive results in this assay for individualswith prior exposure to HIV-1 and/or HIV-2 may be due toantigen and antibody levels that are below the limit ofdetection of this assay.[employer] HIV Ag/Ab Combo assay result andsupplemental assay results should be interpreted inconjunction with the patient's clinical presentation,history and other laboratory results. If the results areinconsistent with clinical evidence, additional testing issuggested to confirm the result. 07/03/2023 11:3 5 AM EDT 07/03/2023 1:01 PM EDT us Eufemia Bauer MD LAB BLOOD ORDERAB LES Final Result Performing Organization Address City/[facility]/ZIP Co de Phone Number [facility] [address] [place] [phone] * Hepatitis C Antibody with Reflex to HCV, RNA, Quantitative, Real-Time PCR (07/03/2023 11:35 AM EDT) Pathologist [facility] Hepatitis C Antibody Nonreactive Nonreactive [facility] Comment:Antibodies to HCV no t detected; does not exclude early acuteHCV infection. Blood Venous blood specimen / Unknown 07/03/2023 11:35 AM EDT 07/03/2023 1:01 PM EDT us Eufemia Bauer MD LAB BLOOD ORDERAB LES Final Result Performing Organization Address [facility]/ZIP Co de Phone Number [facility] [address] [place] [phone] * Lipid Panel, Standard (07/03/2023 11:35 AM EDT) Triglycerides 64 <150 mg/dL [facility] Comment:Desirable Triglyceri de: less than 90 mg/dLBorderline High Triglyceride: 90-129 mg/dLHigh Triglyceride: greater than 130 mg/dL Cholesterol 135 <200 mg/dL [facility] Comment:Desirable Cholestero l: less than 170 mg/dLBorderline High Cholesterol: 170-199 mg/dLHigh Cholesterol: greater than 200 mg/dL LDL Cholesterol Calculated 60 <100 mg/dL [facility] Comment:Desirable LDL: less than 110 mg/dLBorderline LDL: 110-129 mg/dLHigh LDL: greater than or equal to 130 mg/dL HDL Cholesterol 63 >40 mg/dL [facility] Comment:Desirable HDL: great er than 45 mg/dLBorderline HDL: 40-45 mg/dLLow HDL: less than 40 mg/dL Note: This HDL assay may give artificially low results in patients with liver disease. Blood Venous blood specimen / Unknown 07/03/2023 11:35 AM EDT 07/03/2023 1:01 PM EDT Eufemia Bauer MD LAB BLOOD ORDERAB LES Final Result [facility] [address] [place] [phone] [phone] from Last 3 Months or Most Recently Relevant to Health Maintenance Insurance [place] [place] [address] C3 Care Teams Arborist Representative Relationship Specialty Start Date End Date Eufemia Hercules MD [address] [place] [phone] PCP - General Internal Medicine 07/03/23
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
--- OUTSIDE RECORDS SUMMARY | 2025-02-24 21:44 | XMS_ITS ---
Author Organization [employer] Address [address] [facility] 7 [place] [address] Care Team Providers Care Tip Cementer Name Role Phone Eufemia Hercules MD Primary Care Pro vider CM Complex Status:Outreach In Progress (Enrolling) Start date:02/16/2025 Enrollment reason:C3 Manual Referral Overview C3 case escalation Case Team Name Relationship Phone Kylee Burton RN(Responsible Staff) Registered Nurse [phone] Continued Care and Services Coordination
--- OUTSIDE RECORDS SUMMARY | 2025-02-24 21:44 | XMS_ITS | Patient Health Record ---
Author Organization [facility] Address [address] [place], [place] [id number] Care Team Providers Care Mapping Analyst Name Role Phone No, PCP Primary Care Provider Unavailabl e [facility] Unavailable [phone] Reason For Referral No Information Problems Problem Type SNOMED Code ICD Code Onset Dates Problem Status W/U Status Risk Notes Problem Sheltered homelessness (340120685939118 ) Sheltered homelessness (Z59.01) Active confirmed Plan Of Treatment No Information Insurance Providers Payer Name Payer Address Payer Phone Subscriber Number Group Number Insured Name Patient Relationship to Insured Coverage Start Date Coverage End Date [place] Medicaid PCC [address] [place], [place] [id number] Felipe Erickson Self - patient is the insured 3
--- OUTSIDE RECORDS SUMMARY | 2025-02-24 21:44 | XMS_ITS | Encounter Summary ---
Author Organization [employer] [facility] Address [address] [facility] 7[address] [place] [address] Care Team Providers Care Inpatient Care Manager Rn Name Role Phone Eufemia Hercules MD Primary Care Pro vider Encounter Details Date Type Department Care Team (Late st Contact Info) Description 02/22/2025 Telephone [facility] [address] [place] [address] Rebeca Bauer, PharmD [address] [place] [address] Social History Tobacco Use Types Packs/Day Years [...] AM EDT documented as of this encounter Miscellaneous Notes * Telephone Encounter - Rebeca Bauer PharmD - 02/22/2025 12:02 PM EDT Please assist in obtaining discharge paperwork from [facility]. Patient was discharged on 02/21/25. Thank you documented in this encounter Plan of Treatment Upcoming Encounters Date Type Department Care Team (Late st Contact Info) Description 03/02/2025 9:30 AM EDT Office Visit [facility] [address] [place] [phone] Kylie Forbes MD [address] [place], [place] [phone] documented as of this encounter Goals Goal Patient Goal Type Associated Problems Recent Progress Patient-Stated? Author Take your medication every day Lifestyle No Valerio Vazquez, RN documented as of this encounter Visit Diagnoses Not on filedocumented in this encounter Additional Health Concerns Assessment Noted Time PHQ-9 Depression Total Score: 9 01/06/20 4:35 PM EDT documented as of this encounter Care Teams Inpatient Care Manager Rn Relationship Specialty Start Date End Date Eufemia Hercules MD [address] [place], [place] [phone] PCP - General Internal Medicine 07/03/23 documented as of this encounter
--- OUTSIDE RECORDS SUMMARY | 2025-02-24 21:44 | XMS_ITS | Encounter Summary ---
Author Organization [employer] Address [address] [facility] 7 [place] [address] Care Team Providers Care Marketing Graphics Specialist Name Role Phone Eufemia Hercules MD Primary Care Pro vider Reason for Visit * Reason Comments Care Coordination CM/CHW outreach Encounter Details Date Type Department Care Team (Latest Contact Info) Description 02/20/2025 Patient Outreach [facility] [address] [place] [address] Eufemia Hercules MD [address] [place] [address] Care Coordination (CM/CHW outreach) Social History Tobacco [...] t he electric, gas, oil or water [employer] threatened to shut off services in your [...] Progress Notes * Leticia Lazcano - 02/20/2025 2:21 PM EDT CHW Leticia Lazcano received a call from patients CHELSIE Gauthier from [facility] for a status updateon patient. Patient will be discharged on 02/21/25. Patient does not have a phone at this time. CHWscheduled HDF for patient for 03/02/[address] Forbes. Patient will be given all details aswell as my contact number and CM contact number, patient is to call if he can't make it to appt. If patient keeps appt he will meet with CM/CHW on the same day. documented in this encounter Plan of Treatment Upcoming Encounters Date Type Department Care Team ([facility] st Contact Info) Description 03/02/2025 9:30 AM EDT Office Visit [facility] [address] [place] [address] Kylie Forbes MD [address] [place] [address] documented as of this encounter Goals Goal Patient Goal Type Associated Problems Recent Progress Patient-Stated? Author Take your medication every day Lifestyle No Valerio Vazquez, GERONIMO documented as of this encounter Visit Diagnoses Not on filedocumented in this encounter Additional Health Concerns Assessment Noted Time PHQ-9 Depression Total Score: 9 01/06/20 4:35 PM EDT documented as of this encounter Care Teams Marketing Graphics Specialist Relationship Specialty Start Date End Date Eufemia Hercules MD [address] [place] [id number] PCP - General Internal Medicine 07/03/23 documented as of this encounter
--- OUTSIDE RECORDS SUMMARY | 2025-02-24 21:45 | XMS_ITS | Clinical Summary ---
Author Organization [address] [facility] Address [address] [place] [address] Phone Care Team Providers Care Sales Marketing Name Role Phone Jacque Phan Primary Care Provider [phone] Encounters Date Type Department Care Team Description 01/22/[address] [facility] [address] [place] [address] Machelle Briones Other group home (current) drug therapy 01/22/[address] [facility] [address] [place] [address] Machelle Briones from Last 3 Months Social History Tobacco Use Types Packs/Day Years Used Date Smoking Tobacco: Never Assessed Sex and Gender Information Value Date Recorded Sex Assigned at Not on file Legal Sex Male 10:04 AM EDT Gender Identity Not on file Sexual Orientation Not on file Plan of Treatment Health Maintenance Due Date Last Done Comments Varicella Vaccines (1 of 2 - 13+ 2-dose series) 2017 HPV Vaccines (1 - Male 3-dos e series) 2019 Meningococcal B Vaccine (1 o f 2 - Standard) 2020 DTaP,Tdap,and Td Vaccines (1 - Tdap) 2023 Hepatitis B Vaccines (1 of 3 - 19+ 3-dose series) 2023 COVID-19 Vaccine (1 - 2023-2 5 season) 2024 Annual Well Child Visit (3-2 1 years old) 01/22/2025 Depression Screening 01/22/2025 HIV Screening 01/22/2025 Hepatitis C Screening 01/22/2025 Social Influencers of Health Screening 01/22/2025 Influenza Vaccine (Season Ended) 2025 Cholesterol Screening (Lipid Panel) 01/22/2030 01/22/2025 HIB Vaccines Aged Out No longer eligi ble based on patient's age to complete this topic Hepatitis A Vaccines Aged Out No long er eligible based on patient's age to complete this topic IPV Vaccines Aged Out No longer eligi ble based on patient's age to complete this topic MMR Vaccines Aged Out No longer eligi ble based on patient's age to complete this topic Meningococcal ACWY Vaccine Aged Out N o longer eligible based on patient's age to complete this topic Pneumococcal Vaccine: Pediat rics (0 to 5 Years) and At-Risk Patients (6 to 64 Years) Aged Out No longer eligi ble based on patient's age to complete this topic RSV Immunization Patients Un foster 20 months Aged Out No longer eligible b ased on patient's age to complete this topic Procedures Procedure Name Priority Date/Time Associated Diagnosis Comments CBC WITH AUTO DIFFERENTIAL Routine 01/22/2025 7:00 AM EDT 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 HEMOGLOBIN A1C Routine 01/22/2025 7:00 AM EDT Other group home (current) drug therapy CBC AND DIFFERENTIAL Routine 01/22/2025 7:00 AM EDT 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 LIPID PANEL WITH REFLEX TO DIRECT LDL Routine 01/22/2025 7:00 AM EDT 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 COMPREHENSIVE METABOLIC PANEL Routine 01/22/2025 7:00 AM EDT Other group home (current) drug therapy from Last 3 Months Results * Lipid panel with reflex to direct LDL (01/22/2025 7:00 AM EDT) Cholesterol 155 0 - 200 mg/dL LAB CHEMISTRY METHOD 01/22/2025 10:58 AM EDT [facility] Triglycerides 134 0 - 150 mg/dL LAB CHEMISTRY METHOD 01/22/2025 10:58 AM EDT [facility] HDL 62 >=40 mg/dL LAB CHEMISTRY METHOD 01/22/2025 10:58 AM EDT [facility] LDL Calculated 66 0 - 100 mg/dL LAB CHEMISTRY METHOD 01/22/2025 10:58 AM EDT [facility] VLDL Cholesterol Geovanny 26.8 mg/dL LAB CHEMISTRY METHOD 01/22/2025 10:58 AM EDT [facility] Non HDL Chol. (LDL+VLDL) 93 <145 mg/dL LAB CHEMISTRY METHOD 01/22/2025 10:58 AM EDT [facility] Chol/HDL Ratio 2.5 0.0 - 4.4 LAB CHEMISTRY METHOD 01/22/2025 10:58 AM T [facility] Blood Venous blood specimen / Unknown Venipuncture / Unknown 01/22/2025 7:00 AM EDT 01/22/2025 10:06 AM EDT [facility]OD [facility] Final Resul t [facility] [address] [place] [address], [place] [phone] * (ABNORMAL) CBC auto differential (01/22/2025 7:00 AM EDT) WBC 6.6 4.8 - 10.8 K/mcL LAB HEMETOLOGY METHOD 01/22/2025 10:23 AM [facility] RBC 4.70 4.50 - 5.50 M/mcL LAB HEMETOLOGY METHOD 01/22/2025 10:23 AM EDT [facility] Hemoglobin 14.4 13.5 - 17.5 g/dL LAB HEMETOLOGY METHOD 01/22/2025 10:23 AM T [facility] Hematocrit 42.7 42.0 - 54.0 % LAB HEMETOLOGY METHOD 01/22/2025 10:23 AM T [facility] MCV 91.6 79.0 - 98.0 FL LAB HEMETOLOGY METHOD 01/22/2025 10:23 AM [facility] MCH 30.9 27.0 - 32.0 pcg LAB HEMETOLOGY METHOD 01/22/2025 10:23 AM [facility] MCHC 33.7 32.0 - 37.0 g/dL LAB HEMETOLOGY METHOD 01/22/2025 10:23 AM [facility] RDW 12.9 11.0 - 15.0 % LAB HEMETOLOGY METHOD 01/22/2025 10:23 AM [facility] Platelets 177 130 - 400 K/mcL LAB HEMETOLOGY METHOD 01/22/2025 10:23 AM [facility] MPV 12.4(H) 7.0 - 11.0 FL LAB HEMETOLOGY METHOD 01/22/2025 10:23 AM [facility] NRBC 0.0 <1.0 % LAB HEMETOLOGY METHOD 01/22/2025 10:23 AM [facility] NRBC Absolute 0.00 <0.10 K/mcL LAB HEMETOLOGY METHOD 01/22/2025 10:23 AM [facility] Neutrophils Relative 67.1 % LAB HEMETOLOGY METHOD 01/22/2025 10:23 AM [facility] Lymphocytes Relative 21.5 % LAB HEMETOLOGY METHOD 01/22/2025 10:23 AM [facility] Monocytes Relative 9.8 % LAB HEMETOLOGY METHOD 01/22/2025 10:23 AM [facility] Eosinophils Relative 0.6 % LAB HEMETOLOGY METHOD 01/22/2025 10:23 AM [facility] Basophils Relative 0.5 % LAB HEMETOLOGY METHOD 01/22/2025 10:23 AM [facility] Immature Granulocytes Relative 0.5 % LAB HEMETOLOGY METHOD 01/22/2025 10:23 AM EDT [facility] Neutrophils Absolute 4.41 1.50 - 7.00 K/mcL LAB HEMETOLOGY METHOD 01/22/2025 10:23 AM EDT [facility] Lymphocytes Absolute 1.41 1.00 - 5.00 K/mcL LAB HEMETOLOGY METHOD 01/22/2025 10:23 AM EDT [facility] Monocytes Absolute 0.64 0.20 - 1.00 K/[facility] LAB HEMETOLOGY METHOD 01/22/2025 10:23 AM EDT [facility] Eosinophils Absolute 0.04 0.00 - 0.50 K/[facility] LAB HEMETOLOGY METHOD 01/22/2025 10:23 AM EDT [facility] Basophils Absolute 0.03 0.00 - 0.20 K/mcL LAB HEMETOLOGY METHOD 01/22/2025 10:23 AM EDT [facility] Immature Granulocytes Absolute 0.03 0.00 - 0.03 K/[facility] LAB HEMETOLOGY METHOD 01/22/2025 10:23 AM EDT [facility] Blood Venous blood specimen / Unknown Venipuncture / Unknown 01/22/2025 7:00 AM EDT 01/22/2025 10:06 AM EDT [facility] BLOOD ORDERABLES Final Resul t [facility] [address] [place] [address], * Hemoglobin A1c (01/22/2025 7:00 AM EDT) Hemoglobin A1C 5.1 <6.5 % LAB CHEMISTRY METHOD 01/23/2025 1:56 PM EDT [facility] Mean Bld Glu Estim. 100 mg/dL LAB CHEMISTRY METHOD 01/23/2025 1:56 PM EDT [facility] Blood Venous blood specimen / Unknown Venipuncture / Unknown 01/22/2025 7:00 AM EDT 01/22/2025 10:06 AM EDT Machelle Briones LAB BLOOD ORDERABLES Final Resul t [facility] [address] [place] [address], * Comprehensive metabolic panel (01/22/2025 7:00 AM EDT) Pathologist [facility] Sodium 138 133 - 145 mmol/L LAB CHEMISTRY METHOD 01/22/2025 10:58 AM [facility] Potassium 4.2 3.5 - 5.5 mmol/L LAB CHEMISTRY METHOD 01/22/2025 10:58 AM [facility] Chloride 105 96 - 110 mmol/L LAB CHEMISTRY METHOD 01/22/2025 10:58 AM [facility] CO2 29 21 - 32 mmol/L LAB CHEMISTRY METHOD 01/22/2025 10:58 AM [facility] Anion Gap 4 3 - 11 LAB CHEMISTRY METHOD 01/22/2025 10:58 AM [facility] Glucose 79 70 - 100 mg/dL LAB CHEMISTRY METHOD 01/22/2025 10:58 AM [facility] BUN 15 5 - 25 mg/dL LAB CHEMISTRY METHOD 01/22/2025 10:58 AM [facility] Creatinine 0.97 0.70 - 1.30 mg/dL LAB CHEMISTRY METHOD 01/22/2025 10:58 AM [facility] eGFR 115 >=60 mL/min/1. 73m2 LAB CHEMISTRY METHOD 01/22/2025 10:58 AM [facility] Comment:Calculation based on the??Chronic Kidney Disease Epidemiology Collaboration (CKD-EPI) equation refit??without adjustment for race. BUN/Creatinine Ratio 15.5 LAB CHEMISTRY METHOD 01/22/2025 10:58 AM [facility] Calcium 10.2 8.5 - 10.5 mg/dL LAB CHEMISTRY METHOD 01/22/2025 10:58 AM [facility] AST (SGOT) 17 10 - 42 unit/L LAB CHEMISTRY METHOD 01/22/2025 10:58 AM [facility] ALT (SGPT) 44 10 - 60 unit/L LAB CHEMISTRY METHOD 01/22/2025 10:58 AM [facility] Alkaline Phosphatase 91 42 - 121 unit/L LAB CHEMISTRY METHOD 01/22/2025 10:58 AM [facility] Total Protein 7.8 6.0 - 8.0 g/dL LAB CHEMISTRY METHOD 01/22/2025 10:58 AM [facility] Albumin 4.3 3.2 - 5.0 g/dL LAB CHEMISTRY METHOD 01/22/2025 10:58 AM [facility] Total Bilirubin 0.8 0.0 - 1.4 mg/dL LAB CHEMISTRY METHOD 01/22/2025 10:58 AM [facility] Blood Venous blood specimen / Unknown Venipuncture / Unknown 01/22/2025 7:00 AM EDT 01/22/2025 10:06 AM EDT [facility] LAB BLOOD ORDERABLES Final Resul t [facility] [address] [place] [address], from Last 3 Months Care Teams Sales Marketing Relationship Specialty Start Date End Date aJcque Phan [facility] [place] [address] PCP - General Family Medicine 01/24/25
--- NOTE | 2025-02-24 22:00 | MHC.EDTECH ---
pt is trying to leave ED by walking towards main door, security called.
--- NOTE | 2025-02-24 22:01 | MHC.EDTECH ---
pt sleeps with face covered, asked to not to do it- according to our policy pt cannot to do that, pt informed, told me to go fuck myself
[2025-02-24] MEDS: Ziprasidone 20 MG CAPSULE PO (22:12)
[2025-02-24] MEDS: cloNIDine HCL 0.1 MG TABLET PO (22:12)
[2025-02-24] MEDS: diphenhydrAMINE HCL 25 MG CAPSULE 50 MG PO (22:12)
--- NOTE | 2025-02-24 22:12 | PC.NURSE ---
Called pharmacy to bring Geodon 20mg PO down to ED STAT. Patient agreeable to take PO medications for Scott MELTON. Shalonda (charge aide) aware. Patient attempted to leave ED just prior to this note, but was stopped by ED staff & security. Able to calmly agree to walk back to ED 8. Sitter/1:1 remains present. Section 12 continues.
--- NOTE | 2025-02-25 00:33 | ED_ITS ---
HPI - Psych General Chief Complaint: Psychiatric Symptoms Stated Complaint: SI SEC 12 SUPERFICIAL CUTS TO WRISTS Time Seen by Provider: 02/24/25 19:04 Source: EMS and police Mode of arrival: EMS Limitations: other History of Present Illness ED Provider: Dr. Mila Bennett HPI Narrative: Patient comes to the emergency room via EMS and police on board. According to EMS, the patient was found lying in the middle of the road. When EMS arrived, patient was yelling that he wanted the police to kill him. Patient admits that he has been using heroin, crack cocaine, marijuana. Patient has a few scrapes on the forearm, states it was secondary to scratching with a broken pipe, self- inflicted injuries. patient yelling that does not want to be here According to the patient prefers female pronouns. However, in previous visits, patient has been asked to use they/ them/there Pronouns Related Data Home Medications ?Medication ?Instructions ?Recorded ?Confirmed No Known Home Meds 10/31/23 02/24/25 Allergies Allergy/AdvReac Type Severity Reaction Status Date / Time bee pollen [bee stings] Allergy Unknown Verified 02/24/25 19:07 haloperidol [From Haldol] AdvReac Swelling Verified 02/24/25 19:07 Review of Systems 2 Review of Systems: Constitutional : No Weight loss, No Fever, No Chills, No Night Sweats, No Fatigue, No Malaise ENT/Mouth : No Hearing loss, No Ear Pain, No Nasal Congestion, No Sinus Pain, No Hoarseness, No sore throat, No Rhinorrhea, No Swallowing Difficulty Eyes: No Eye Pain, No Swelling, No Redness, No Foreign Body, No Discharge, No Vision Changes Cardiovascular : No Chest Pain, No SOB, No Dyspnea on Exertion, No Orthopnea, No Edema, No Palpitations Respiratory : No Cough, No Sputum, No Wheezing, No Smoke Exposure, No Dyspnea Gastrointestinal : No Nausea, No Vomiting, No Diarrhea, No Constipation, No abdominal Pain, No Hematochezia, No Melena Genitourinary : no irregular bleeding, No Dysuria, No Urinary Frequency, No Hematuria, No Urinary Incontinence, No Urgency, No Flank Pain, No Urinary Flow Changes, No Hesitancy Musculoskeletal : No joint pain, No Myalgias, No Joint Swelling Skin : No Skin Lesions, No rash Neuro : No Weakness, No Numbness, No Paresthesias, No Loss of Consciousness, No Dizziness, No Headache Psych : complaining of SI, no HI Heme/Lymph: No Bruising, No Bleeding,No Lymphadenopathy Endocrine : No Polyuria, No Polydipsia, No Temperature Intolerance [facility] Past Medical History Medical History Fentanyl use disorder, moderate Cocaine abuse Asthma Social History Social History Alcohol intake: current Alcohol intake frequency: 0-2 drinks per day Alcohol type: hard liquor Substance Use Type: Crack/Cocaine Advance Directives: No Advance Directives Information Provided: No Physical Exam 2 Vital Signs: Vital Signs: Last Vital Signs Temp 98 F 02/24/25 18:59 Pulse 108 H 02/24/25 18:59 Resp 18 02/24/25 18:59 BP 121/61 02/24/25 18:59 Pulse Ox 98 02/24/25 18:59 O2 Del Method Room Air 02/24/25 18:59 BMI result Body Mass Index 26.1 Const: Other: Appearance: Alert. Oriented X3. No acute distress. Eyes: Pupils equal, round and reactive to light. ENT: Pharynx normal. Neck: Normal inspection. Neck supple. No lymph nodes noted. No crepitus CVS: Normal heart rate and rhythm. Pulses normal. Normal S1 and S2 Respiratory: No respiratory distress. Breath sounds normal. No Wheezing. No rales Abdomen: Soft and nontender. No rigidity. No distention. Skin: Skin warm and dry. Normal skin color. Normal skin turgor. superficial abrasions to the forearm, no stitches needed. Extremities: No lower extremity edema. No Lacerations. No Rash Neuro: Oriented X 3. No motor deficit. No sensory deficit. Moving all extremities. No slurred speech. CN 2 through 12 grossly intact Psych: Angry, yelling at times, trying to elope Course Course Course Narrative: patient arrived on a Section 12 all of patient's labs pending care team consult pending patient requesting several medications including Thorazine, gabapentin, Xanax, clonidine, Zyprexa. Patient states that he gets this medications prescribed. However, we can not see it in our list of medications foot she is provided by pharmacy and also, in the mass pat, there is no indication that patient gets prescribed gabapentin or Xanax patient very agitated, tried to elope multiple times, security had to be called several times. Patient got p.o. Ativan, Geodon 20, clonidine 0.1 mg, Benadryl 50 mg. Patient is sleeping comfortably all of patient's labs pending, patient had been refusing labs. patient is under physician observation of note, care team has advised us that the patient is well known at [facility] and that the patient can Get very violent usually Versed helps in case patient becomes physically aggressive also, patient has tendency of changing pronouns also, when I spoke with the patient, patient was requesting a diaper for incontinence there is no documentation that the patient has incontinence, patient has not been here incontinent at all. Patient has no back pain, normal reflexes, normal gait, no evidence of urinary or fecal incontinence. No suspicion for cauda equina. Here in the emergency room, patient has been walking to the bathroom. It is unclear why patient asked for a diaper patient has been stable, vitals stable now sleeping Reevaluation(s) Reevaluation #1: Time: 07:43 Date: 02/25/25 Provider: Peewee Yin MD Patient in physician observation for psychiatric evaluation. Patient presented with suicidal ideation and with a plan to be shot by police Patient has been in the emergency department for 13 hours.? No acute events reported overnight. VS stable with elevated heart rate of 108 beats per minute.? Patient is waiting for care team evaluation. Reevaluation #2: Time: 12:40 Date: 02/25/25 Provider: Peewee Yin MD Physician observation ended at 12:40. Patient was evaluated and was cleared for discharge by the CARE team. Will follow up as an outpatient. Medications Administered Discontinued Medications Generic Name Dose Route Start Last Admin Trade Name Freq PRN Reason Stop Dose Admin Clonidine HCl 0.1 mg 02/24/25 22:02 02/24/25 22:12 Clonidine Hcl 0.1 Mg Tablet PO 02/24/25 22:03 0.1 mg ONCE ONE Administration Protocol Diphenhydramine HCl 50 mg 02/24/25 22:02 02/24/25 22:12 Diphenhydramine Hcl 25 Mg Capsule PO 02/24/25 22:03 50 mg ONCE ONE Administration Lorazepam 2 mg 02/24/25 20:58 02/24/25 21:05 Lorazepam 1 Mg Tablet PO 02/24/25 20:59 2 mg ONCE ONE Administration Ziprasidone 20 mg 02/24/25 22:02 02/24/25 22:12 Ziprasidone 20 Mg Capsule PO 02/24/25 22:03 20 mg ONCE ONE Administration Medical Decision Making Lab Data 02/24/25 19:59 02/24/25 19:59 Labs: Lab Results 02/24/25 Range/Units 19:59 WBC 7.7 (4.8-10.8) X10*3/uL RBC 4.52 L (4.60-5.80) X10*6/uL Hgb 14.1 (14.0-18.0) g/dl Hct 40.2 L (42.0-52.0) % MCV 88.9 (80.0-98.0) fL MCH 31.2 (27.0-33.0) pg MCHC 35.1 (31.0-36.0) g/dl RDW 12.4 (11.0-16.0) % Plt Count 180 (160-400) X10*3/uL MPV 11.1 (9.4-12.4) fL Immature Gran % (Auto) 0.3 (0.0-0.4) % Neut % (Auto) 72.5 (45-73) % Lymph % (Auto) 19.9 L (20-40) % Pima % (Auto) 6.4 (2-11) % Eos % (Auto) 0.5 (0-4) % Baso % (Auto) 0.4 (0-2) % Lymph # (Auto) 1.5 (1.2-4.9) X10*3/uL Pima # (Auto) 0.5 (0.1-1.2) X10*3/uL Eos # (Auto) 0.0 (0.0-0.4) X10*3/uL Baso # (Auto) 0.0 (0.0-0.2) X10*3/uL Abs Immat Gran (auto) 0.02 (0.00-0.03) X10*3/uL Absolute Neuts (auto) 5.6 (2.0-8.3) x10*3/uL Absolute Nucleated RBC 0.000 (0.0-0.012) X10*3/uL Nucleated RBC % (auto) 0.0 (0.0-0.2) /100WBC Sodium 140 (135-145) mmol/L Potassium 4.0 (3.3-5.1) mmol/L Chloride 104 (96-108) mmol/L Carbon Dioxide 27 (22-29) mmol/L Anion Gap 13 (12-20) BUN 15 (9-16) mg/dL Creatinine 1.03 (0.5-1.4) mg/dL Estim Creat Clear Calc 121.8 Estimated GFR > 60 Random Glucose 132 H (60-115) mg/dL Calcium 9.4 (8.4-10.2) mg/dL Total Bilirubin 0.5 (0.0-1.0) mg/dL AST 34 (5-37) U/L ALT 54 H (0-40) U/L Alkaline Phosphatase 89 (39-117) U/L Total Protein 7.3 (6.5-8.0) g/dL Albumin 4.5 (3.5-5.0) g/dL Salicylates < 5.0 L (15-30) mg/dL Acetaminophen < 3 (<30) mcg/mL Ethyl Alcohol < 10 mg/dL Critical Care Time Critical Care Time Critical Care Time: Yes Total Critical Care Time: 60 Attestation: I have personally provided critical care time. Time includes review of lab data, radiology results, discussion with consultants, and monitoring for potential decompensation. Intervention performed as documented. Discharge Plan Discharge Clinical Impression: Suicidal ideation Patient Disposition: Home, Self-Care Additional Instructions: You were seen in our Emergency Department today for treatment of a behavioral health issue. It is important after your visit that you follow up with either your behavioral health provider or a primary care doctor within 7 days.? If you have trouble finding a therapist you can reach out to [address] [phone] The National Suicide and Crisis Lifeline can be reached 7 days a week 24 hours a day.? Call 988 to speak with someone.? Return for any worsening symptoms or concerns such as thoughts of self harm or harm to others. Please call 911 if you feel your mental health is worsening.? Prescriptions: No Action No Known Home Meds Interventions: O'Brien-Suicide Risk Severity Scale Last Done: 02/25/25 07:05 Print Language: Kinyarwanda
--- NOTE | 2025-02-25 02:26 | PC.NURSE ---
pt has been sleeping since shortly after med pass. even, nonlabored respirations. occasionally changes position side to side and to stomach
--- NOTE | 2025-02-25 03:17 | MHC.EDTECH ---
PT refused lab work RN aware
--- NOTE | 2025-02-25 05:26 | PC.NURSE ---
asleep at this time. still with even nonlabored respirations occasionally changing position in bed. previously refused vitals and labs per Tech note. aware. sitter remains in place
--- NOTE | 2025-02-25 07:07 | PC.NURSE ---
Pt moved from ED 8 to 2 by this RN and Olman, Chicken Sexer. Patient initially resistant, angry and unwilling to go willingly. With some encouragement patient did begrudgingly come over to the pod. Continue plan of care for CARE team assessment
--- NOTE | 2025-02-25 10:33 | PHA.MEDREC ---
Pharmacy Consult ? Medication Reconciliation Pharmacy has completed the medication reconciliation. Reviewed med rec done by nursing (Hanane).
--- NOTE | 2025-02-25 12:31 | PC.NURSE ---
Pt woke up, reporting that they had an accident . Pt showered, linens changed
--- NOTE | 2025-02-25 12:32 | PC.NURSE ---
Pt slamming BH pod phone after not being able to connect with a phone number. Pt also then stood at the nurses station, opened the door to the nurses station and refused to stop playing with the latch to open the door. Pt did redirect
[2025-02-25 12:45] VITALS: BP 126/74; PULSE 63; RESP 16; TEMP 36.7; O2SAT 98
== END 2025-02-25 13:04 | disposition home or self-care (01) ==
PROVIDERS: Emergency Medicine; Emergency Provider Emergency Medicine
DX: S50.811A Abrasion of right forearm, initial encounter (principal); S50.812A Abrasion of left forearm, initial encounter; R45.851 Suicidal ideations; F11.10 Opioid abuse, uncomplicated; F14.10 Cocaine abuse, uncomplicated; X78.9XXA Intentional self-harm by unspecified sharp object, initial encounter; Y93.9 Activity, unspecified; Y92.9 Unspecified place or not applicable; Y99.8 Other external cause status; Z79.899 Other long term (current) drug therapy; Z51.81 Encounter for therapeutic drug level monitoring
CPT/HCPCS: 36415; 80053; 80143; 80179; 80307; 85025; 99284; 99285; S9485

== ENCOUNTER 2025-02-26 01:16 | Emergency (ER) | payer MEDICAID, SELFPAY ==
[2025-02-26] VITALS (19 sets, daily range): BP systolic 143–157; BP diastolic 69–92; PULSE 89–96; RESP 16–26; TEMP 37.2; O2SAT 94–97; BMI 25.8
--- OUTSIDE RECORDS SUMMARY | 2025-02-26 01:24 | XMS_ITS | Encounter Summary ---
Author Organization [facility] Address [address] [facility] [address] [place] [address] Care Team Providers Care Interior Design Assistant Name Role Phone Eufemia Hercules MD Primary Care Pro vider Encounter Details Date Type Department Care Team (Late st Contact Info) Description 02/22/2025 Telephone [facility] [address] [place] [address] Rebeca Bauer, PharmD [address] [place] [address] Social History Tobacco Use Types Packs/Day Years [...] Please assist in obtaining discharge paperwork from [facility]. Patient was discharged on 02/21/25. Thank you documented in this encounter Plan of Treatment Upcoming Encounters Date Type Department Care Team (Late st Contact Info) Description 03/02/2025 9:30 AM EDT Office Visit [facility] [address] [place] [id number] Kylie Forbes MD [address] [place], [place] [phone] documented as of this encounter Goals Goal Patient Goal Type Associated Problems Recent Progress Patient-Stated? Author Take your medication every day Lifestyle No Valerio Vazquez, RN documented as of this encounter Visit Diagnoses Not on filedocumented in this encounter Additional Health Concerns Assessment Noted Time PHQ-9 Depression Total Score: 9 01/06/20 4:35 PM EDT documented as of this encounter Care Teams Interior Design Assistant Relationship Specialty Start Date End Date Eufemia Hercules MD [address] [place], [place] [phone] PCP - General Internal Medicine 07/03/23 documented as of this encounter
--- OUTSIDE RECORDS SUMMARY | 2025-02-26 01:24 | XMS_ITS | Encounter Summary ---
Author Organization [facility] Address [address] [facility] [address] [place] [address] Care Team Providers Care Personal Care Aide Name Role Phone Eufemia Hercules MD Primary Care Pro vider Encounter Details Date Type Department Care Team (Late st Contact Info) Description 02/24/2025 Patient Outreach [facility] Care [facility] ([facility] Department [address] [facility] [address] [place] [address] Gena Dominique Social History Tobacco [...] Description 03/02/2025 9:30 AM EDT Office Visit [facility] [address] [place] [id number] Kylie Forbes MD [address] [place] [id number] documented as of this encounter Goals Goal Patient Goal Type Associated Problems Recent Progress Patient-Stated? Author Take your medication every day Lifestyle No Valerio Vazquez, RN documented as of this encounter Visit Diagnoses Not on filedocumented in this encounter Additional Health Concerns Assessment Noted Time PHQ-9 Depression Total Score: 9 01/06/20 25 4:35 PM EDT documented as of this encounter Care Teams Personal Care Aide Relationship Specialty Start Date End Date Eufemia Hercules MD [address] [place] [id number] PCP - General Internal Medicine 07/03/23 documented as of this encounter
--- OUTSIDE RECORDS SUMMARY | 2025-02-26 01:24 | XMS_ITS | Patient Health Record ---
Author Organization [facility] Address [address] [place], [place] [id number] Care Team Providers Care Progressive Care Unit Registered Nurse Name Role Phone No, PCP Primary Care Provider Unavailabl e [facility] Unavailable [phone] Reason For Referral No Information Problems Problem Type SNOMED Code ICD Code Onset Dates Problem Status W/U Status Risk Notes Problem Sheltered homelessness (670248741382206 ) Sheltered homelessness (Z59.01) Active confirmed Plan Of Treatment No Information Insurance Providers Payer Name Payer Address Payer Phone Subscriber Number Group Number Insured Name Patient Relationship to Insured Coverage Start Date Coverage End Date [place] Medicaid PCC [address] [place], [place] [id number] Felipe Erickson Self - patient is the insured 3
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
--- OUTSIDE RECORDS SUMMARY | 2025-02-26 01:24 | XMS_ITS ---
Author Organization [employer] Address [address] [facility] [address] [place] [address] Care Team Providers Care Food Service Name Role Phone Eufemia Hercules MD Primary Care Pro vider CM Complex Status:Outreach In Progress (Enrolling) Start date:02/16/2025 Enrollment reason:C3 Manual Referral Overview C3 case escalation Case Team Name Relationship Phone Kylee Burton RN(Responsible Staff) Registered Nurse [phone] Continued Care and Services Coordination
--- OUTSIDE RECORDS SUMMARY | 2025-02-26 01:24 | XMS_ITS | Encounter Summary ---
Author Organization [employer] [facility] Address [address] [place] [address] Care Team Providers Care Resizer Operator Name Role Phone Jacque Phan Primary Care Provider [phone] Encounter Details Date Type Department Care Team (Late st Contact Info) Description 01/22/2025 Lab Requisition [facility] - Main Lab [address] [facility] [place] [address] Machelle Briones Other tank terminal gauger (current) drug therapy Social History Tobacco Use [...] LDL Routine 01/22/2025 7:00 AM EDT Other tank terminal gauger (current) drug therapy CBC WITH AUTO DIFFERENTIAL Routine 01/22/2025 7:00 AM EDT Other mcc (current) drug therapy CBC AND DIFFERENTIAL Routine 01/22/2025 7:00 AM EDT Other tank terminal gauger (current) drug therapy HEMOGLOBIN A1C Routine 01/22/2025 7:00 AM EDT Other mcc (current) drug therapy COMPREHENSIVE METABOLIC PANEL Routine 01/22/2025 7:00 AM EDT Other tank terminal gauger (current) drug therapy documented in this encounter Results * (ABNORMAL) CBC auto differential (01/22/2025 7:00 AM EDT) WBC 6.6 4.8 - 10.8 K/mcL LAB HEMETOLOGY METHOD 01/22/2025 10:23 AM [facility] RBC 4.70 4.50 - 5.50 M/mcL LAB HEMETOLOGY METHOD 01/22/2025 10:23 AM [facility] Hemoglobin 14.4 13.5 - 17.5 g/dL LAB HEMETOLOGY METHOD 01/22/2025 10:23 AM [facility] Hematocrit 42.7 42.0 - 54.0 % LAB HEMETOLOGY METHOD 01/22/2025 10:23 AM [facility] MCV 91.6 79.0 - 98.0 FL LAB HEMETOLOGY METHOD 01/22/2025 10:23 AM [facility] MCH 30.9 27.0 - 32.0 pcg LAB HEMETOLOGY METHOD 01/22/2025 10:23 AM [facility] MCHC 33.7 32.0 - 37.0 g/dL LAB HEMETOLOGY METHOD 01/22/2025 10:23 AM [facility] RDW 12.9 11.0 - 15.0 % LAB HEMETOLOGY METHOD 01/22/2025 10:23 AM [facility] Platelets 177 130 - 400 K/mcL LAB HEMETOLOGY METHOD 01/22/2025 10:23 AM [facility] MPV 12.4(H) 7.0 - 11.0 FL LAB HEMETOLOGY METHOD 01/22/2025 10:23 AM [facility] NRBC 0.0 <1.0 % LAB HEMETOLOGY METHOD 01/22/2025 10:23 AM [facility] NRBC Absolute 0.00 <0.10 K/mcL LAB HEMETOLOGY METHOD 01/22/2025 10:23 AM [facility] Neutrophils Relative 67.1 % LAB HEMETOLOGY METHOD 01/22/2025 10:23 AM [facility] Lymphocytes Relative 21.5 % LAB HEMETOLOGY METHOD 01/22/2025 10:23 AM [facility] Monocytes Relative 9.8 % LAB HEMETOLOGY METHOD 01/22/2025 10:23 AM [facility] Eosinophils Relative 0.6 % LAB HEMETOLOGY METHOD 01/22/2025 10:23 AM [facility] Basophils Relative 0.5 % LAB HEMETOLOGY METHOD 01/22/2025 10:23 AM [facility] Immature Granulocytes Relative 0.5 % LAB HEMETOLOGY METHOD 01/22/2025 10:23 AM [facility] Neutrophils Absolute 4.41 1.50 - 7.00 K/mcL LAB HEMETOLOGY METHOD 01/22/2025 10:23 AM [facility] Lymphocytes Absolute 1.41 1.00 - 5.00 K/mcL LAB HEMETOLOGY METHOD 01/22/2025 10:23 AM [facility] Monocytes Absolute 0.64 0.20 - 1.00 K/mcL LAB HEMETOLOGY METHOD 01/22/2025 10:23 AM [facility] Eosinophils Absolute 0.04 0.00 - 0.50 K/mcL LAB HEMETOLOGY METHOD 01/22/2025 10:23 AM [facility] Basophils Absolute 0.03 0.00 - 0.20 K/mcL LAB HEMETOLOGY METHOD 01/22/2025 10:23 AM [facility] Immature Granulocytes Absolute 0.03 0.00 - 0.03 K/mcL LAB HEMETOLOGY METHOD 01/22/2025 10:23 AM [facility] Blood Venous blood specimen / Unknown Venipuncture / Unknown 01/22/2025 7:00 AM EDT 01/22/2025 10:06 AM EDT [facility] LAB BLOOD ORDERABLES Final Resul t Performing Organization Address [facility]/ZIP Co de Phone Number [facility] [address] [place] [address], [place] [phone] * Hemoglobin A1c (01/22/2025 7:00 AM EDT) Pathologist [facility] Hemoglobin A1C 5.1 <6.5 % LAB CHEMISTRY METHOD 01/23/2025 1:56 PM EDT [facility] Mean Bld Glu Estim. 100 mg/dL LAB CHEMISTRY METHOD 01/23/2025 1:56 PM EDT [facility] Blood Venous blood specimen / Unknown Venipuncture / Unknown 01/22/2025 7:00 AM EDT 01/22/2025 10:06 AM EDT [facility] LAB BLOOD ORDERABLES Final Resul t Performing Organization Address [facility]/ZIP Co de Phone Number [facility] [address] [place] [address], [place] [phone] * Lipid panel with reflex to direct LDL (01/22/2025 7:00 AM EDT) Cholesterol 155 0 - 200 mg/dL LAB CHEMISTRY METHOD 01/22/2025 10:58 AM EDT [facility] Triglycerides 134 0 - 150 mg/dL LAB CHEMISTRY METHOD 01/22/2025 10:58 AM EDT [facility] HDL 62 >=40 mg/dL LAB CHEMISTRY METHOD 01/22/2025 10:58 AM EDT [facility] LDL Calculated 66 0 - 100 mg/dL LAB CHEMISTRY METHOD 01/22/2025 10:58 AM EDT [facility] VLDL Cholesterol Geovanny 26.8 mg/dL LAB CHEMISTRY METHOD 01/22/2025 10:58 AM EDT [facility] Non HDL Chol. (LDL+VLDL) 93 <145 mg/dL LAB CHEMISTRY METHOD 01/22/2025 10:58 AM [facility] Chol/HDL Ratio 2.5 0.0 - 4.4 LAB CHEMISTRY METHOD 01/22/2025 10:58 AM [facility] Blood Venous blood specimen / Unknown Venipuncture / Unknown 01/22/2025 7:00 AM EDT 01/22/2025 10:06 AM EDT [facility] LAB BLOOD ORDERABLES Final Resul t [facility] [address] [place] [address], * Comprehensive metabolic panel (01/22/2025 7:00 AM EDT) Sodium 138 133 - 145 mmol/L LAB CHEMISTRY METHOD 01/22/2025 10:58 AM [facility] Potassium 4.2 3.5 - 5.5 mmol/L LAB CHEMISTRY METHOD 01/22/2025 10:58 AM [facility] Chloride 105 96 - 110 mmol/L LAB CHEMISTRY METHOD 01/22/2025 10:58 AM [facility] CO2 29 21 - 32 mmol/L LAB CHEMISTRY METHOD 01/22/2025 10:58 AM [facility] Anion Gap 4 3 - 11 LAB CHEMISTRY METHOD 01/22/2025 10:58 AM [facility] Glucose 79 70 - 100 mg/dL LAB CHEMISTRY METHOD 01/22/2025 10:58 AM [facility] BUN 15 5 - 25 mg/dL LAB CHEMISTRY METHOD 01/22/2025 10:58 AM [facility] Creatinine 0.97 0.70 - 1.30 mg/dL LAB CHEMISTRY METHOD 01/22/2025 10:58 AM [facility] eGFR 115 >=60 mL/min/1. 73m2 LAB CHEMISTRY METHOD 01/22/2025 10:58 AM [facility] Comment:Calculation based on the??Chronic Kidney Disease Epidemiology Collaboration (CKD-EPI) equation refit??without adjustment for race. BUN/Creatinine Ratio 15.5 LAB CHEMISTRY METHOD 01/22/2025 10:58 AM [facility] Calcium 10.2 8.5 - 10.5 mg/dL LAB CHEMISTRY METHOD 01/22/2025 10:58 AM [facility] AST (SGOT) 17 10 - 42 unit/L LAB CHEMISTRY METHOD 01/22/2025 10:58 AM [facility] ALT (SGPT) 44 10 - 60 unit/L LAB CHEMISTRY METHOD 01/22/2025 10:58 AM [facility] Alkaline Phosphatase 91 42 - 121 unit/L LAB CHEMISTRY METHOD 01/22/2025 10:58 AM [facility] Total Protein 7.8 6.0 - 8.0 g/dL LAB CHEMISTRY METHOD 01/22/2025 10:58 AM [facility] Albumin 4.3 3.2 - 5.0 g/dL LAB CHEMISTRY METHOD 01/22/2025 10:58 AM [facility] Total Bilirubin 0.8 0.0 - 1.4 mg/dL LAB CHEMISTRY METHOD 01/22/2025 10:58 AM [facility] Blood Venous blood specimen / Unknown Venipuncture / Unknown 01/22/2025 7:00 AM EDT 01/22/2025 10:06 AM EDT Machel[facility]iones LAB BLOOD ORDERABLES Final Resul t [facility] [address] [place] [address], documented in this encounter Visit Diagnoses Diagnosis Other tank terminal gauger (current) drug therapy documented in this encounter Care Teams Resizer Operator Relationship Specialty Start Date End Date Jacque Phan [address] [place] [id number] PCP - General Family Medicine 01/24/25 documented as of this encounter
--- OUTSIDE RECORDS SUMMARY | 2025-02-26 01:25 | XMS_ITS | Encounter Summary ---
Author Organization [facility] Address [address] [place] [address] Care Team Providers Care Event Operations Manager Name Role Phone Jacque Phan Primary Care Provider [phone] Encounter Details Date Type Department Care Team (Late st Contact Info) Description 01/22/2025 Lab Requisition [facility] - Main Lab [address] [facility] [place] [address] Machelle Briones Social History Tobacco [...] on filedocumented in this encounter Care Teams Event Operations Manager Relationship Specialty Start Date End Date Jacque Phan [facility] [place] [address] PCP - General Family Medicine 01/24/25 documented as of this encounter
--- OUTSIDE RECORDS SUMMARY | 2025-02-26 01:25 | XMS_ITS | Clinical Summary ---
Author Organization [address] [facility] Address [address] [place] [address] Phone Care Team Providers Care Distribution System Operator Name Role Phone Jacque Phan Primary Care Provider [phone] Encounters Date Type Department Care Team Description 01/22/2025 Lab Requisition [facility] [address] [place] [address] Machelle Briones Other intermediate (current) drug therapy 01/22/2025 Lab Requisition [facility] [address] [place] [address] Machelle Briones from Last 3 [...] DIFFERENTIAL Routine 01/22/2025 7:00 AM EDT Other roasterman (current) drug therapy HEMOGLOBIN A1C Routine 01/22/2025 7:00 AM EDT Other intermediate (current) drug therapy CBC AND DIFFERENTIAL Routine 01/22/2025 7:00 AM EDT Other roasterman (current) drug therapy LIPID PANEL WITH REFLEX TO DIRECT LDL Routine 01/22/2025 7:00 AM EDT Other roasterman (current) drug therapy COMPREHENSIVE METABOLIC PANEL Routine 01/22/2025 7:00 AM EDT Other intermediate (current) drug therapy from Last 3 Months Results * Lipid panel with reflex to direct LDL (01/22/2025 7:00 AM EDT) Cholesterol 155 0 - 200 mg/dL LAB CHEMISTRY METHOD 01/22/2025 10:58 AM EDT [facility] Triglycerides 134 0 - 150 mg/dL LAB CHEMISTRY METHOD 01/22/2025 10:58 AM EDT [facility] HDL 62 >=40 mg/dL LAB CHEMISTRY METHOD 01/22/2025 10:58 AM EDT [facility] LDL Calculated 66 0 - 100 mg/dL LAB CHEMISTRY METHOD 01/22/2025 10:58 AM EDT [facility] VLDL Cholesterol Geovanny 26.8 mg/dL LAB CHEMISTRY METHOD 01/22/2025 10:58 AM EDT [facility] Non HDL Chol. (LDL+VLDL) 93 <145 mg/dL LAB CHEMISTRY METHOD 01/22/2025 10:58 AM EDT [facility] Chol/HDL Ratio 2.5 0.0 - 4.4 LAB CHEMISTRY METHOD 01/22/2025 10:58 AM T [facility] Blood Venous blood specimen / Unknown Venipuncture / Unknown 01/22/2025 7:00 AM EDT 01/22/2025 10:06 AM EDT [facility] Final Resul t [facility] [address] [place] [address], [place] [phone] * (ABNORMAL) CBC auto differential (01/22/2025 7:00 AM EDT) WBC 6.6 4.8 - 10.8 K/mcL LAB HEMETOLOGY METHOD 01/22/2025 10:23 AM [facility] RBC 4.70 4.50 - 5.50 M/mcL LAB HEMETOLOGY METHOD 01/22/2025 10:23 AM EDT [facility] Hemoglobin 14.4 13.5 - 17.5 g/dL LAB HEMETOLOGY METHOD 01/22/2025 10:23 AM T [facility] Hematocrit 42.7 42.0 - 54.0 % LAB HEMETOLOGY METHOD 01/22/2025 10:23 AM T [facility] MCV 91.6 79.0 - 98.0 FL LAB HEMETOLOGY METHOD 01/22/2025 10:23 AM [facility] MCH 30.9 27.0 - 32.0 pcg LAB HEMETOLOGY METHOD 01/22/2025 10:23 AM [facility] MCHC 33.7 32.0 - 37.0 g/dL LAB HEMETOLOGY METHOD 01/22/2025 10:23 AM [facility] RDW 12.9 11.0 - 15.0 % LAB HEMETOLOGY METHOD 01/22/2025 10:23 AM [facility] Platelets 177 130 - 400 K/mcL LAB HEMETOLOGY METHOD 01/22/2025 10:23 AM [facility] MPV 12.4(H) 7.0 - 11.0 FL LAB HEMETOLOGY METHOD 01/22/2025 10:23 AM [facility] NRBC 0.0 <1.0 % LAB HEMETOLOGY METHOD 01/22/2025 10:23 AM [facility] NRBC Absolute 0.00 <0.10 K/mcL LAB HEMETOLOGY METHOD 01/22/2025 10:23 AM [facility] Neutrophils Relative 67.1 % LAB HEMETOLOGY METHOD 01/22/2025 10:23 AM [facility] Lymphocytes Relative 21.5 % LAB HEMETOLOGY METHOD 01/22/2025 10:23 AM [facility] Monocytes Relative 9.8 % LAB HEMETOLOGY METHOD 01/22/2025 10:23 AM [facility] Eosinophils Relative 0.6 % LAB HEMETOLOGY METHOD 01/22/2025 10:23 AM [facility] Basophils Relative 0.5 % LAB HEMETOLOGY METHOD 01/22/2025 10:23 AM [facility] Immature Granulocytes Relative 0.5 % LAB HEMETOLOGY METHOD 01/22/2025 10:23 AM EDT [facility] Neutrophils Absolute 4.41 1.50 - 7.00 K/mcL LAB HEMETOLOGY METHOD 01/22/2025 10:23 AM EDT [facility] Lymphocytes Absolute 1.41 1.00 - 5.00 K/mcL LAB HEMETOLOGY METHOD 01/22/2025 10:23 AM EDT [facility] Monocytes Absolute 0.64 0.20 - 1.00 K/[facility] LAB HEMETOLOGY METHOD 01/22/2025 10:23 AM EDT [facility] Eosinophils Absolute 0.04 0.00 - 0.50 K/[facility] LAB HEMETOLOGY METHOD 01/22/2025 10:23 AM EDT [facility] Basophils Absolute 0.03 0.00 - 0.20 K/mcL LAB HEMETOLOGY METHOD 01/22/2025 10:23 AM EDT [facility] Immature Granulocytes Absolute 0.03 0.00 - 0.03 K/[facility] LAB HEMETOLOGY METHOD 01/22/2025 10:23 AM EDT [facility] Blood Venous blood specimen / Unknown Venipuncture / Unknown 01/22/2025 7:00 AM EDT 01/22/2025 10:06 AM EDT [facility] Final Resul t [facility] [address] [place] [address], * Hemoglobin A1c (01/22/2025 7:00 AM EDT) Hemoglobin A1C 5.1 <6.5 % LAB CHEMISTRY METHOD 01/23/2025 1:56 PM EDT [facility] Mean Bld Glu Estim. 100 mg/dL LAB CHEMISTRY METHOD 01/23/2025 1:56 PM EDT [facility] Blood Venous blood specimen / Unknown Venipuncture / Unknown 01/22/2025 7:00 AM EDT 01/22/2025 10:06 AM EDT [facility] LAB BLOOD ORDERABLES Final Resul t [facility] [address] [place] [address], * Comprehensive metabolic panel (01/22/2025 7:00 AM EDT) Pathologist [facility] Sodium 138 133 - 145 mmol/L LAB CHEMISTRY METHOD 01/22/2025 10:58 AM [facility] Potassium 4.2 3.5 - 5.5 mmol/L LAB CHEMISTRY METHOD 01/22/2025 10:58 AM [facility] Chloride 105 96 - 110 mmol/L LAB CHEMISTRY METHOD 01/22/2025 10:58 AM [facility] CO2 29 21 - 32 mmol/L LAB CHEMISTRY METHOD 01/22/2025 10:58 AM [facility] Anion Gap 4 3 - 11 LAB CHEMISTRY METHOD 01/22/2025 10:58 AM [facility] Glucose 79 70 - 100 mg/dL LAB CHEMISTRY METHOD 01/22/2025 10:58 AM [facility] BUN 15 5 - 25 mg/dL LAB CHEMISTRY METHOD 01/22/2025 10:58 AM [facility] Creatinine 0.97 0.70 - 1.30 mg/dL LAB CHEMISTRY METHOD 01/22/2025 10:58 AM [facility] eGFR 115 >=60 mL/min/1. 73m2 LAB CHEMISTRY METHOD 01/22/2025 10:58 AM [facility] Comment:Calculation based on the??Chronic Kidney Disease Epidemiology Collaboration (CKD-EPI) equation refit??without adjustment for race. BUN/Creatinine Ratio 15.5 LAB CHEMISTRY METHOD 01/22/2025 10:58 AM [facility] Calcium 10.2 8.5 - 10.5 mg/dL LAB CHEMISTRY METHOD 01/22/2025 10:58 AM [facility] AST (SGOT) 17 10 - 42 unit/L LAB CHEMISTRY METHOD 01/22/2025 10:58 AM [facility] ALT (SGPT) 44 10 - 60 unit/L LAB CHEMISTRY METHOD 01/22/2025 10:58 AM [facility] Alkaline Phosphatase 91 42 - 121 unit/L LAB CHEMISTRY METHOD 01/22/2025 10:58 AM [facility] Total Protein 7.8 6.0 - 8.0 g/dL LAB CHEMISTRY METHOD 01/22/2025 10:58 AM [facility] Albumin 4.3 3.2 - 5.0 g/dL LAB CHEMISTRY METHOD 01/22/2025 10:58 AM [facility] Total Bilirubin 0.8 0.0 - 1.4 mg/dL LAB CHEMISTRY METHOD 01/22/2025 10:58 AM [facility] Blood Venous blood specimen / Unknown Venipuncture / Unknown 01/22/2025 7:00 AM EDT 01/22/2025 10:06 AM EDT [facility] LAB BLOOD ORDERABLES Final Resul t [facility] [address] [place] [address], from Last 3 Months Care Teams Distribution System Operator Relationship Specialty Start Date End Date Jacque Phan [facility] [place] [address] PCP - General Family Medicine 01/24/25
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
[2025-02-26] MEDS: diphenhydrAMINE HCL 50 MG/ML VIAL IM (01:35)
[2025-02-26] MEDS: OLANZapine 10 MG VIAL IM ×2 (01:35→13:00)
[2025-02-26] MEDS: Ziprasidone Mesylate 20 MG VIAL IM (01:45)
[2025-02-26] MEDS: LORazepam 1 MG TABLET 2 MG PO ×2 (02:37→20:40)
--- NOTE | 2025-02-26 02:52 | PC.NURSE ---
Patient presented to ED POD escorted by PD and security, loud, disruptive, aggressive, combative, making suicidal statement, requiring immediate physical and chemical restraint, placed on four point at 0125 and Olanzapine 10 mg IM and Benadryl 50 mg administered as ordered at 0135 and Geodon 20 mg IM at 0145. Physical restraint released at 0255 after patient contracted for the safety, 1:1 discontinued, ROM intact, no injury, currently in bed appears sleeping, will continue to monitor
--- NOTE | 2025-02-26 05:59 | PC.NURSE ---
Patient is s/p restraint, currently appears sleeping, no distress observed/reported, labs pending, 15 minutes safety check, no behavior and safety concerns at this time, will continue to monitor
--- NOTE | 2025-02-26 09:38 | PC.NURSE ---
Assumed care of patient at 0845, patient appears to be sleeping, respirations even and unlabored, no apparent distress is noted at this time. Per previous RN and nursing notes, patient was disruptive, requiring IM restraint early this am. Pt is currently pending CARE team naresh
--- NOTE | 2025-02-26 12:17 | PC.NURSE ---
Pt awake, asking to see CARE team. CARE team contacted, unable to see patient at this time, awaiting additional clinicians to come in later in the day
--- NOTE | 2025-02-26 12:35 | PC.NURSE ---
patient exited room again to ask to see CARE team, when told CARE team could not see her until another clinician came in pt became upset and started opening door to nurses station, pt was redirectable verbally back to room
[2025-02-26] MEDS: Midazolam HCl 2 MG/2 ML VIAL IM (13:00)
[2025-02-26] MEDS: Ziprasidone Mesylate 20 MG VIAL 10 MG IM (14:20)
[2025-02-26] MEDS: Acetaminophen 325 MG TABLET 975 MG PO (15:57)
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
--- NOTE | 2025-02-26 17:50 | PC.NURSE ---
Patient appears to be sleeping at this time, respirations even and unlabored, no apparent distress noted. Continue plan of care for inpatient bedsearch S12a
[2025-02-26] MEDS: Ziprasidone 20 MG CAPSULE PO (20:40)
[2025-02-26] MEDS: cloNIDine HCL 0.1 MG TABLET PO (20:40)
[2025-02-26] MEDS: diphenhydrAMINE HCL 25 MG CAPSULE 50 MG PO (20:41)
[2025-02-27 06:31] VITALS: RESP 16
[2025-02-27] MEDS: LORazepam 1 MG TABLET 2 MG PO ×4 (07:18→23:19)
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
--- NOTE | 2025-02-27 12:59 | MHC.CARE ---
T/w met with Pt multiple times, Pt adamantly denies SI/HI/VH/AH. Pt is requesting to be discharged. Pt stated his behaviors regarding pulling his knife was as a means to get his needs met via getting money for drugs. Pt stated he has taken multiple subtances, i.e heroin and crack cocaine. 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 Pt became somewhat agitated while meeting with other staff. T/w assisted with de-esclation of Pt. Pt willing took PO meds. Pt continues to request discharge from the hosptial. Pt has chronic mental health issues and reprots he has not intention to harm himself or others. Its theorized by t/w Pt is likely attempting to get his needs met via provocative behavior and is not truly suicidal or at imminent risk. t/w called Corbin CHRISTIE to clarify statement of Pt allegedly attempting to grab a firearm. Per PD this did not occur in interaction that occurred prior to Pt coming to the ED. Pt had three knifes removed from his persons by PD. T/w asked Pt if he had any weapons on him which Pt declined having any other access to lethal means. CARE Team verbally case consulted with Chantale Quick NP regarding level of care. Recommendations at this time is to continue for Pt to be IPLOC given his impulsively and potential of inadvertent risk to self or others given his recent actions. T/w requested a formal psychiatric consult at this time.
--- NOTE | 2025-02-27 13:52 | PHA.MEDREC ---
Pharmacy Consult ? Medication Reconciliation Pharmacy reviewed med rec done by nursing. No Known Home Meds confirmed by nurse and looking at claims, they matches.
[2025-02-27 14:02] LABS: MANUAL DIFF FLAG NO
[2025-02-27 14:04] LABS: Basophils Percent Auto 0.5 % (0-2); Eosinophils Absolute Auto 0.1 X10*3/uL (0.0-0.4); Eosinophils Percent Auto 1.3 % (0-4); Hematocrit 44.4 % (42.0-52.0); Hemoglobin 15.3 g/dl (14.0-18.0); Imm Gran Abs Auto 0.01 X10*3/uL (0.00-0.03); Imm Gran Pct Auto 0.2 % (0.0-0.4); Lymphocytes Absolute Auto 1.1 X10*3/uL (1.2-4.9); Mean Corpuscular HGB Conc 34.5 g/dl (31.0-36.0); Mean Corpuscular Hemoglobin 31.6 pg (27.0-33.0); Mean Corpuscular Volume 91.7 fL (80.0-98.0); Mean Platelet Volume 11.2 fL (9.4-12.4); Monocytes Absolute Auto 0.4 X10*3/uL (0.1-1.2); Monocytes Percent Auto 5.9 % (2-11); Neutrophils Absolute Auto 4.5 x10*3/uL (2.0-8.3); Neutrophils Percent Auto 74.1 % (45-73); Platelet Count 198 X10*3/uL (160-400); Red Blood Count 4.84 X10*6/uL (4.60-5.80); Red Cell Distribution Width 12.3 % (11.0-16.0); White Blood Count 6.1 X10*3/uL (4.8-10.8)
[2025-02-27 14:06] LABS: Amphetamine Screen Urine Not Detected (Not Detect); Barbiturates, Urine Not Detected (Not Detect); Benzodiazepines Screen Urine POSITIVE (Not Detect); Buprenorphine Scr Positive (Not Detect); Cannabinoid Screen Urine POSITIVE (Not Detect); Cocaine Screen Urine POSITIVE (Not Detect); Fentanyl, urine POSITIVE (Not Detect); Methadone Screen, Urine Not Detected (Not Detect); Opiate Screen Urine POSITIVE (Not Detect); Oxycodone Screen Urine Not Detected (Not Detect); Phencyclidine Screen Urine Not Detected (Not Detect)
[2025-02-27] MEDS: diphenhydrAMINE HCL 50 MG/ML VIAL IM (14:21)
[2025-02-27] MEDS: OLANZapine 10 MG VIAL IM (14:21)
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
[2025-02-27 14:28] LABS: Acetaminophen LAB < 3 mcg/mL (<30); Alanine Aminotransferase 47 U/L (0-40); Albumin Level 4.8 g/dL (3.5-5.0); Alkaline Phosphatase 92 U/L (39-117); Anion Gap 12 (12-20); Aspartate Amino Transferase 62 U/L (5-37); Bilirubin Direct 0.3 mg/dL (0.0-0.5); Blood Urea Nitrogen 17 mg/dL (9-16); Calcium 9.7 mg/dL (8.4-10.2); Carbon Dioxide 27 mmol/L (22-29); Chloride 104 mmol/L (96-108); Creatinine Clr Calc Pharmacy 110.6; Estimated Glomerular Filt Rate > 60; Ethanol < 10 mg/dL; Glucose Random 168 mg/dL (60-115); Potassium 4.1 mmol/L (3.3-5.1); Salicylate < 5.0 mg/dL (15-30); Sodium 139 mmol/L (135-145)
--- NOTE | 2025-02-27 14:45 | PC.NURSE ---
dr britt to the unit, pt placed in 4-point violent restraints, pt thrashing in restraints attempting to escape restraints, security to the bedside to readjust restraints.
--- NOTE | 2025-02-27 14:48 | PC.NURSE ---
pt now spitting at staff
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
[2025-02-27] MEDS: OLANZapine 10 MG TABLET PO ×2 (22:24→23:19)
[2025-02-28] MEDS: diphenhydrAMINE HCL 50 MG/ML VIAL IM (00:31)
[2025-02-28] MEDS: OLANZapine 10 MG VIAL IM (00:31)
--- NOTE | 2025-02-28 03:52 | PC.NURSE ---
late entry- upon arrival to unit prior staff informed t/w of the prev bx exhibited by this client. once client awakened client used veiled threats to emphasize how he felt in regrds to the offered sleep medications and what he believed their effectiveness would be.
--- NOTE | 2025-02-28 04:01 | PC.NURSE ---
ont'd from prev note. client required 3 courses of medication to obtain enough modification to allow for client to sleep. clients presentation seemed incongruous to the statements client was making (late entry) client appeared to present as pushy and demanding, exhibiting minimal distress tolerance. appears in no distress presently, will continue to monitor.
[2025-02-28 06:29] VITALS: RESP 16
--- NOTE | 2025-02-28 07:30 | PC.NURSE ---
Assumed care of pt at 0700. Pt resting in bed quietly, respirations even and unlabored, no increased wob/sob noted. Plan for pt inpt bedsearch. Call gómez within reach, all needs met at this time.
[2025-02-28 08:56] VITALS: RESP 16
--- NOTE | 2025-02-28 11:40 | PC.NURSE ---
Pt up walking around the unit. Impulsive behavior- forcefully shutting doors, hitting hands on table. Pt attempted to enter into nurses station, able to be redirected and educated this is staff only area. Pt now calm/cooperative with staff, requesting to take a shower. Supplies given to pt for shower. Pt updated on plan of care.
--- NOTE | 2025-02-28 12:18 | PC.NURSE ---
Pt stated to this RN she takes daily medicines (Suboxone, Gabapentin, Klonipin, Clonidine) This RN spoke to pt pharmacy, [facility] in [place] to confirm meds. Per pharmacist- pt has not filled meds since December. Made aware of pt requesting these medications.
--- NOTE | 2025-02-28 14:34 | MHC.RECOVRN ---
T/W met with pt in 06 re: request for buprenorphine. Pt reports that she has previously been prescribed subutex 16mg QAM and 8mg QPM She reports she has not received from pharmacy as she has been in multiple hospitals as of late and has been getting it from them. [facility] reports last script was was filled on 01/05. Pt reports that she used 1 and 1/2 bundles of heroin over the last few days via IV route and crack and cocaine by smoking and injecting (unable to quantify) Pt denies any allergies to suboxone strips. Pt experiencing W/D including runny nose, chills, aches, nausea, anxiety and agitation. T/W consulted with Eufemia Oliveira NP and she will f/u with pt.
[2025-02-28 15:36] VITALS: BP 156/88; PULSE 102; RESP 16; TEMP 36.6; O2SAT 97
[2025-02-28] MEDS: Buprenorphine HCL 8 MG TAB.SUBL 16 MG SUBLINGUAL (16:00)
--- NOTE | 2025-02-28 16:20 | PC.NURSE ---
Pt refused vitals/take home Narcan. This RN educated pt on need for take home Narcan- pt stated I'll use it right now if you give me it. Aware. Pt d/c with security.
[2025-02-28 16:21] VITALS: BP 0/0; PULSE 0; RESP 0; TEMP -17.7; TEMP 0; O2SAT 0
== END 2025-02-28 16:21 | disposition home or self-care (01) ==
PROVIDERS: Emergency Provider Emergency Medicine
DX: R45.851 Suicidal ideations (principal); R45.6 Violent behavior; R45.1 Restlessness and agitation; F14.10 Cocaine abuse, uncomplicated; J45.909 Unspecified asthma, uncomplicated
CPT/HCPCS: 36415; 80048; 80076; 80143; 80179; 80307; 85025; 96372; 99285; J0571; J1200; J2250; J2359; J3486; S9485

== ENCOUNTER → 2025-02-26 01:20 | Outpatient (BNV) | payer OTHER, MEDICAID, SELFPAY | PROVIDERS: Emergency Provider Emergency Medicine; Visit Provider Social Worker | DX: F39 Unspecified mood [affective] disorder (principal) | CPT/HCPCS: 99499 ==

== ENCOUNTER 2025-06-07 01:22 | Emergency (ER) | payer MEDICAID, SELFPAY ==
[2025-06-07] VITALS (7 sets, daily range): BP systolic 0–120; BP diastolic 0–66; PULSE 0–88; RESP 14–17; TEMP -17.7–36.6; O2SAT 0–98; BMI 21.2
--- OUTSIDE RECORDS SUMMARY | 2025-06-07 02:56 | XMS_ITS ---
Author Organization [employer] Address [address] [facility] 7t [place] [address] Care Team Providers Care Formulation Technician Name Role Phone Eufemia Hercules MD Primary Care Pro vider Kylee Burton RN Unavailable [phone] Leticia Lazcano Unavailable Gabriella Yin [facility] Unavailable [phone] Gena Dominique Unavailable C3 [facility] Status:Outreach In Progress (Enrolling) Start date:06/05/2025 Enrollment reason:ADT Feed Case Team Name Relationship Phone Gena Dominique(Responsible Staff) Director Of Cloud Services [phone] Continued Care and Services Coordination
--- OUTSIDE RECORDS SUMMARY | 2025-06-07 02:56 | XMS_ITS ---
Author Organization [employer] [facility] Address [address] [facility] 7t [place] [address] Care Team Providers Care Senior Category Manager Name Role Phone Eufemia Hercules MD Primary Care Pro vider Kylee Burton RN Unavailable [phone] Leticia Lazcano Unavailable Gabriella Yin Unavailable [phone] Gena Dominique Unavailable C3 CM [facility] Status:Outreach In Progress (Enrolling) Start date:06/05/2025 Enrollment reason:ADT Feed Case Team Name Relationship Phone Gabriella Yin [facility](Responsible Staff) Social Worke r [phone] Continued Care and Services Coordination
--- OUTSIDE RECORDS SUMMARY | 2025-06-07 02:57 | XMS_ITS | Clinical Summary ---
Author Organization [address] [facility] Address [address] [place] [address] Phone Care Team Providers Care Cv Rn Name Role Phone Jacque Phan Primary Care Provider Social History Tobacco Use Types Packs/Day Years Used Date Smoking Tobacco: Never Assessed Sex and Gender Information Value Date Recorded Sex Assigned at Not on file Legal Sex Male 10:04 AM EDT Gender Identity Not on file Sexual Orientation Not on file Plan of Treatment Health Maintenance Due Date Last Done Comments HPV Vaccines (1 - Male 3-dos e series) 2019 Meningococcal B Vaccine (1 o f 2 - Standard) 2020 DTaP,Tdap,and Td Vaccines (1 - Tdap) 2023 Hepatitis B Vaccines (1 of 3 - 19+ 3-dose series) 2023 COVID-19 Vaccine (1 - 2023-2 5 season) 2024 Depression Screening 10/12/2024 Annual Well Child Visit (3-2 1 years old) 01/22/2025 HIV Screening 01/22/2025 Hepatitis C Screening 01/22/2025 Social Influencers of Health Screening 01/22/2025 Influenza Vaccine (#1) 2025 Cholesterol Screening (Lipid Panel) 01/22/2030 01/22/2025 [...] 5 Years) and At-Risk Patients (6 to 49 Years) Aged Out No longer eligi ble based on patient's age to complete this topic RSV Immunization Patients Un foster 20 months Aged Out No longer eligible b ased on patient's age to complete this topic Varicella Vaccines Aged Out No longer eligible based on patient's age to complete this topic Procedures Procedure Name Priority Date/Time Associated Diagnosis Comments LIPID PANEL WITH REFLEX TO DIRECT LDL Routine 01/22/2025 7:00 AM EDT Other nursing home (current) drug therapy from Last 3 Months or Most Recently Relevant to Health Maintenance Results * Lipid panel with reflex to direct LDL (01/22/2025 7:00 AM EDT) Cholesterol 155 0 - 200 mg/dL LAB CHEMISTRY METHOD 01/22/2025 10:58 AM EDT [facility] Triglycerides 134 0 - 150 mg/dL LAB CHEMISTRY METHOD 01/22/2025 10:58 AM EDT [facility] HDL 62 >=40 mg/dL LAB CHEMISTRY METHOD 01/22/2025 10:58 AM EDT [facility] LDL Calculated 66 0 - 100 mg/dL LAB CHEMISTRY METHOD 01/22/2025 10:58 AM EDT [facility] VLDL Cholesterol Geovanny 26.8 mg/dL LAB CHEMISTRY METHOD 01/22/2025 10:58 AM [facility] Non HDL Chol. (LDL+VLDL) 93 <145 mg/dL LAB CHEMISTRY METHOD 01/22/2025 10:58 AM EDT [facility] Chol/HDL Ratio 2.5 0.0 - 4.4 LAB CHEMISTRY METHOD 01/22/2025 10:58 AM T [facility] Blood Venous blood specimen / Unknown Venipuncture / Unknown 01/22/2025 7:00 AM EDT 01/22/2025 10:06 AM EDT Machelle Briones LAB BLOOD ORDERABLES Final Resul t [facility] [address] [place] [address], from Last 3 Months or Most Recently Relevant to Health Maintenance Care Teams Cv Rn Relationship Specialty Start Date End Date Jacque Aparicio [facility] [place] [address] PCP - General Family Medicine 01/24/25
--- OUTSIDE RECORDS SUMMARY | 2025-06-07 02:57 | XMS_ITS | Encounter Summary ---
Author Organization [facility] Address [address] [place] [address] Care Team Providers Care Product Trainer Name Role Phone Jacque Phan Primary Care Provider Encounter Details Date Type Department Care Team (Late st Contact Info) Description 01/22/[address] [facility] - Main Lab [address] [facility] [place] [address] Machelle Briones Social History Tobacco [...] on filedocumented in this encounter Care Teams Product Trainer Relationship Specialty Start Date End Date Jacque Phan [facility] [place] [address] PCP - General Family Medicine 01/24/25 documented as of this encounter
--- OUTSIDE RECORDS SUMMARY | 2025-06-07 02:57 | XMS_ITS | Encounter Summary ---
Author Organization [employer] Address [address] [facility] 7t [place] [address] Care Team Providers Care Wellness Consultant Name Role Phone Eufemia Hercules MD Primary Care Pro vider Kylee Burton RN Unavailable [phone] Leticia Lazcano Unavailable Gabriella Yin [facility] Unavailable [phone] Gena Dominique Unavailable Encounter Details Date Type Department Care Team (Late st Contact Info) Description 06/05/2025 Patient Outreach [facility] (C3) Department [address] [facility] [address] [place] [address] Gena Dominique Social History Tobacco [...] Upcoming Encounters Date Type Department Care Team ([facility] st Contact Info) Description 06/19/2025 9:00 AM EDT Office Visit [facility] [address] [place] [address] Kylie Forbes MD [address] [place] [address] documented as of this encounter Goals Goal Patient Goal Type Associated Problems Recent Progress Patient-Stated? Author Take your medication every day Lifestyle No Valerio Vazquez, GERONIMO documented as of this encounter Visit Diagnoses Not on filedocumented in this encounter Additional Health Concerns Assessment Noted Time PHQ-9 Depression Total Score: 9 01/06/20 25 4:35 PM EDT documented as of this encounter Care Teams Wellness Consultant Relationship Specialty Start Date End Date Eufemia Hercules MD [address] [place] [address] PCP - General Internal Medicine 07/03/23 Kylee Burton RN [address] [place] [address] Registered Nurse Family Medicine 05/25/25 Leticia Lazcano 05/25/25 Gabriella Yin, [facility] Technologies Division Chair Behavioral Health 06/05/25 Gena Dominique Technologies Division Chair Behavioral Health 06/05/25 documented as of this encounter
--- OUTSIDE RECORDS SUMMARY | 2025-06-07 02:57 | XMS_ITS ---
Author Organization [employer] Address [address] [facility] 7t [place] [address] Care Team Providers Care Air Brush Artist Name Role Phone Eufemia Hercules MD Primary Care Pro vider Kylee Burton RN Unavailable [phone] Leticia Lazcano Unavailable Gabriella Yin [facility] Unavailable [phone] Gena Dominique Unavailable [facility] Status:Outreach In Progress (Enrolling) Start date:05/25/2025 Enrollment reason:[facility] Overview Missing MB List- Pt admitted to [facility] on 05/22/25 for Bipolar d/o. Case Team Name Relationship Phone Kylee Burton RN(Responsible Staff) Registered Nurse [phone] Continued Care and Services Coordination
--- OUTSIDE RECORDS SUMMARY | 2025-06-07 02:57 | XMS_ITS | Clinical Summary ---
Author Organization [employer] Address [address] [facility] [address] [place] [address] Care Team Providers Care Spinning Bath Person Name Role Phone Eufemia Hercules MD Primary Care Pro vider Kylee Burton RN Unavailable [phone] Leticia Lazcano Unavailable Gabriella Yin [facility] Unavailable [phone] Gena Dominique Unavailable Allergies No known active allergies Medications * This document contains information received from the source organization and may not represent a complete record from that organization. Buprenorphine HCl-Naloxone HCl (Suboxone) 8-2 MG SL filmIndications :Uncomplicated opioid use Place 1 Film under the tongue Once per day for 7 days. In the morning. 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 Date Type Department Care Team Description 06/06/2025 Patient Outreach [facility] [address] [place] [address] Eufemia Hercules MD 06/05/2025 Patient Outreach [facility] Care [facility] (C3) Department [address] [place] [address] DominiqueGena garcia 06/05/2025 Patient Outreach [facility] Care [facility] () Department [address] [place] [address] DominiqueGena garcia 06/05/2025 Patient Outreach [facility] Care [facility] (C3) Department [address] [place] [address] DominiqueGena garcia 06/05/2025 Patient Outreach [facility] Care [facility] () Department [address] [place] [address] DominiqueGena garcia 06/05/2025 Patient Outreach [facility] Care [facility] () Department [address] [place] [address] Gabriella Yin [facility] 06/05/2025 Patient Outreach [facility] [address] [place] [address] Eufemia Hercules MD 05/31/2025 Patient Outreach [facility] [address] [place] [address] Eufemia Hercules MD Transition Of Care (Tcm) (HDF scheduled.) 05/29/2025 Patient Outreach [facility] [address] [place] [address] Eufemia Hercules MD 05/26/2025 Patient Outreach [address] [address] Eufemia Hercules MD Care Coordination (CM/CHW outreach) 05/25/2025 Patient Outreach [address] [address] Eufmeia Hercules MD Care Coordination (CHW chart review) 05/25/2025 Patient Outreach [address] [address] Eufemia Hercules MD Care Management ([facility]- chart review) 05/25/2025 Patient Outreach [address] [address] Eufemia Hercules MD 03/07/[address] [address] Valerio Vazquez, RN OBAT DISCHARGE from Last 3 Months Immunizations Immunization Administration [...] your housing situation today? I have nerissa sing 12/30/[address] you li [...] 97 12/30/2024 10:36 AM EDT Temperature 36.3 C (97.3 F) 12/30/2024 10:36 AM EDT Respiratory Rate 20 07/03/2023 9:11 [...] Care Team (Late st Contact Info) Description 06/19/2025 9:00 AM EDT Office Visit [facility] [address] [place] [address] Kylie Forbes MD [address] [place] [address] Health Maintenance Due Date Last Done Comments Chlamydia and Gonorrhea Screening 2004 Disability Screening 2004 Family Planning (PISQ) 2019 HPV Vaccines (1 - 3-dose series) 2019 Meningococcal B Vaccine (1 o f 2 - Standard) 2020 DTaP/Tdap/Td Vaccines (1 - Tdap) 2023 Hepatitis B Vaccines (1 of 3 - 19+ 3-dose series) 2023 Pneumococcal Vaccine: Pediatrics (0 to 5 Years) and At-Risk Patients (6 to 49) Years (1 of 2 - PCV) 2023 COVID-19 Vaccine (1 - 2023-2 5 season) 2024 Influenza Vaccine (#1) 2025 12/19/2022 Depression Monitoring 07/08/2025 01/05/2025 , 01/05/2025 Alcohol/Substance Use Screening 12/30/2025 12/30/2024 SDOH Screening 12/30/2025 12/30/2024 Tobacco Screening 12/30/2025 12/30/2024 Lipid Panel 07/03/2028 07/03/2023 Zoster Vaccines (1 [...] medication every day Lifestyle No Valerio Vazquez, solar photovoltaic systems engineer Procedure Name Priority Date/Time Associated Diagnosis Comments HEPATITIS C AB W/REFL TO HCV RNA, QN, PCR Routine 07/03/2023 11:35 AM EDT Health care maintenance HIV ANTIBODY/ANTIGEN ([place] DPH) Routine 07/03/2023 11:35 AM EDT LIPID PANEL, STANDARD Routine 07/03/2023 11:35 AM EDT Health care maintenance from Last 3 Months or Most Recently Relevant to Health Maintenance Results * HIV Ab/Ag (GUILLERMO ROSENBERG) (07/03/2023 11:35 AM EDT) HIV AB/AG Nonreactive Nonreactive [facility] Comment:HIV-1 p24 Ag and/or HIV-1/HIV-2 Ab not detected.A test result that is nonreactive does not exclude thepossibility of exposure to or infection with HIV-1 and/orHIV-2. Nonreactive results in this assay for individualswith prior exposure to HIV-1 and/or HIV-2 may be due toantigen and antibody levels that are below the limit ofdetection of this assay.The [employer] HIV Ag/Ab Combo assay result andsupplemental assay results should be interpreted inconjunction with the patient's clinical presentation,history and other laboratory results. If the results areinconsistent with clinical evidence, additional testing issuggested to confirm the result. 07/03/2023 11:3 5 AM EDT 07/03/2023 1:01 PM EDT us Eufemia Bauer MD LAB BLOOD ORDERAB LES Final Result Performing Organization Address City/[facility]/ZIP Co de Phone Number [facility] [address] [place] [phone] * Hepatitis C Antibody with Reflex to HCV, RNA, Quantitative, Real-Time PCR (07/03/2023 11:35 AM EDT) Hepatitis C Antibody Nonreactive Nonreactive [facility] Comment:Antibodies to HCV no t detected; does not exclude early acuteHCV infection. Blood Venous blood specimen / Unknown 07/03/2023 11:35 AM EDT 07/03/2023 1:01 PM EDT Eufemia Bauer MD LAB BLOOD ORDERAB LES Final Result [facility] [address] [place] [phone] * Lipid Panel, Standard (07/03/2023 11:35 AM EDT) Triglycerides 64 <150 mg/dL [facility] Comment:Desirable Triglyceri de: less than 90 mg/dLBorderline High Triglyceride: 90-129 mg/dLHigh Triglyceride: greater than 130 mg/dL Cholesterol 135 <200 mg/dL [facility] Comment:Desirable Cholestero l: less than 170 mg/dLBorderline High Cholesterol: 170-199 mg/dLHigh Cholesterol: greater than 200 mg/dL LDL Cholesterol Calculated 60 <100 mg/dL [facility] Comment:Desirable LDL: less than 110 mg/dLBorderline LDL: 110-129 mg/dLHigh LDL: greater than or equal to 130 mg/dL HDL Cholesterol 63 >40 mg/dL [facility] Comment:Desirable HDL: great er than 45 mg/dLBorderline HDL: 40-45 mg/dLLow HDL: less than 40 mg/dL Note: This HDL assay may give artificially low results in patients with liver disease. Blood Venous blood specimen / Unknown 07/03/2023 11:35 AM EDT 07/03/2023 1:01 PM EDT Eufemia Bauer MD LAB BLOOD ORDERAB LES Final Result Performing Organization Address [facility] Co de Phone Number [facility] [address] [place] [address] [phone] from Last 3 Months or Most Recently Relevant to Health Maintenance Insurance [facility] STANDARD Care Teams Spinning Bath Person Relationship Specialty Start Date End Date Eufemia Hercules MD [address] [place] [phone] PCP - General Internal Medicine 07/03/23 Kylee Burton RN [address] [place] [address] Registered Nurse Family Medicine 05/25/25 Leticia Lazcano 05/25/25 [facility] [employer] Supervisor Behavioral Health 06/05/25 Gena Dominique [employer] Supervisor Behavioral Health 06/05/25
--- OUTSIDE RECORDS SUMMARY | 2025-06-07 02:57 | XMS_ITS | Encounter Summary ---
Author Organization [employer] [facility] Address [address] [place] [address] Care Team Providers Care Underpresser Hand Name Role Phone Jacque Phan Primary Care Provider [phone] Encounter Details Date Type Department Care Team (Late st Contact Info) Description 01/22/[address] 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 therapy CBC AND DIFFERENTIAL Routine 01/22/2025 7:00 AM EDT Other termite treater helper (current) drug therapy HEMOGLOBIN A1C Routine 01/22/2025 7:00 AM EDT Other intermediate (current) drug therapy COMPREHENSIVE METABOLIC PANEL Routine 01/22/2025 7:00 AM EDT Other intermediate (current) drug therapy documented in this encounter Results * (ABNORMAL) CBC auto differential (01/22/2025 7:00 AM EDT) WBC 6.6 4.8 - 10.8 K/mcL LAB HEMETOLOGY METHOD 01/22/2025 10:23 AM [facility] LAB RBC 4.70 4.50 - 5.50 M/mcL LAB HEMETOLOGY METHOD 01/22/2025 10:23 AM [facility] LAB Hemoglobin 14.4 13.5 - 17.5 g/dL LAB HEMETOLOGY METHOD 01/22/2025 10:23 AM [facility] LAB Hematocrit 42.7 42.0 - 54.0 % LAB HEMETOLOGY METHOD 01/22/2025 10:23 AM [facility] LAB MCV 91.6 79.0 - 98.0 FL LAB HEMETOLOGY METHOD 01/22/2025 10:23 AM [facility] LAB MCH 30.9 27.0 - 32.0 pcg LAB HEMETOLOGY METHOD 01/22/2025 10:23 AM [facility] LAB MCHC 33.7 32.0 - 37.0 g/dL LAB HEMETOLOGY METHOD 01/22/2025 10:23 AM [facility] LAB RDW 12.9 11.0 - 15.0 % LAB HEMETOLOGY METHOD 01/22/2025 10:23 AM [facility] LAB Platelets 177 130 - 400 K/mcL LAB HEMETOLOGY METHOD 01/22/2025 10:23 AM [facility] LAB MPV 12.4(H) 7.0 - 11.0 FL LAB HEMETOLOGY METHOD 01/22/2025 10:23 AM [facility] LAB NRBC 0.0 <1.0 % LAB HEMETOLOGY METHOD 01/22/2025 10:23 AM [facility] LAB NRBC Absolute 0.00 <0.10 K/mcL LAB HEMETOLOGY METHOD 01/22/2025 10:23 AM [facility] LAB Neutrophils Relative 67.1 % LAB HEMETOLOGY METHOD 01/22/2025 10:23 AM [facility] LAB Lymphocytes Relative 21.5 % LAB HEMETOLOGY METHOD 01/22/2025 10:23 AM [facility] LAB Monocytes Relative 9.8 % LAB HEMETOLOGY METHOD 01/22/2025 10:23 AM [facility] LAB Eosinophils Relative 0.6 % LAB HEMETOLOGY METHOD 01/22/2025 10:23 AM [facility] LAB Basophils Relative 0.5 % LAB HEMETOLOGY METHOD 01/22/2025 10:23 AM [facility] LAB Immature Granulocytes Relative 0.5 % LAB HEMETOLOGY METHOD 01/22/2025 10:23 AM [facility] LAB Neutrophils Absolute 4.41 1.50 - 7.00 K/mcL LAB HEMETOLOGY METHOD 01/22/2025 10:23 AM [facility] LAB Lymphocytes Absolute 1.41 1.00 - 5.00 K/mcL LAB HEMETOLOGY METHOD 01/22/2025 10:23 AM [facility] LAB Monocytes Absolute 0.64 0.20 - 1.00 K/mcL LAB HEMETOLOGY METHOD 01/22/2025 10:23 AM [facility] LAB Eosinophils Absolute 0.04 0.00 - 0.50 K/mcL LAB HEMETOLOGY METHOD 01/22/2025 10:23 AM [facility] LAB Basophils Absolute 0.03 0.00 - 0.20 K/mcL LAB HEMETOLOGY METHOD 01/22/2025 10:23 AM [facility] LAB Immature Granulocytes Absolute 0.03 0.00 - 0.03 K/mcL LAB HEMETOLOGY METHOD 01/22/2025 10:23 AM [facility] LAB Blood Venous blood specimen / Unknown Venipuncture / Unknown 01/22/2025 7:00 AM EDT 01/22/2025 10:06 AM EDT [facility] Briones LAB BLOOD ORDERABLES Final Resul t Performing Organization Address [facility]/ZIP Co de Phone Number [facility] [address] [place] [address], [place] [phone] * Hemoglobin A1c (01/22/2025 7:00 AM EDT) Pathologist [facility] [place] Hemoglobin A1C 5.1 <6.5 % LAB CHEMISTRY METHOD 01/23/2025 1:56 PM EDT [facility] LAB Mean Bld Glu Estim. 100 mg/dL LAB CHEMISTRY METHOD 01/23/2025 1:56 PM EDT [facility] LAB Blood Venous blood specimen / Unknown Venipuncture / Unknown 01/22/2025 7:00 AM EDT 01/22/2025 10:06 AM EDT [facility] LAB BLOOD ORDERABLES Final Resul t Performing Organization Address [facility]/ZIP Co de Phone Number [facility] [address] [place] [address], [place] [phone] * Lipid panel with reflex to direct LDL (01/22/2025 7:00 AM EDT) Cholesterol 155 0 - 200 mg/dL LAB CHEMISTRY METHOD 01/22/2025 10:58 AM EDT [facility] LAB Triglycerides 134 0 - 150 mg/dL LAB CHEMISTRY METHOD 01/22/2025 10:58 AM EDT [facility] HDL 62 >=40 mg/dL LAB CHEMISTRY METHOD 01/22/2025 10:58 AM EDT [facility] LDL Calculated 66 0 - 100 mg/dL LAB CHEMISTRY METHOD 01/22/2025 10:58 AM EDT [facility] LAB VLDL Cholesterol Geovanny 26.8 mg/dL LAB CHEMISTRY METHOD 01/22/2025 10:58 AM EDT [facility] LAB Non HDL Chol. (LDL+VLDL) 93 <145 mg/dL LAB CHEMISTRY METHOD 01/22/2025 10:58 AM [facility] LAB Chol/HDL Ratio 2.5 0.0 - 4.4 LAB CHEMISTRY METHOD 01/22/2025 10:58 AM [facility] LAB Blood Venous blood specimen / Unknown Venipuncture / Unknown 01/22/2025 7:00 AM EDT 01/22/2025 10:06 AM EDT [facility] LAB BLOOD ORDERABLES Final Resul t [facility] [address] [place] [address], * Comprehensive metabolic panel (01/22/2025 7:00 AM EDT) Sodium 138 133 - 145 mmol/L LAB CHEMISTRY METHOD 01/22/2025 10:58 AM [facility] LAB Potassium 4.2 3.5 - 5.5 mmol/L LAB CHEMISTRY METHOD 01/22/2025 10:58 AM [facility] LAB Chloride 105 96 - 110 mmol/L LAB CHEMISTRY METHOD 01/22/2025 10:58 AM [facility] LAB CO2 29 21 - 32 mmol/L LAB CHEMISTRY METHOD 01/22/2025 10:58 AM [facility] LAB Anion Gap 4 3 - 11 LAB CHEMISTRY METHOD 01/22/2025 10:58 AM [facility] LAB Glucose 79 70 - 100 mg/dL LAB CHEMISTRY METHOD 01/22/2025 10:58 AM [facility] BUN 15 5 - 25 mg/dL LAB CHEMISTRY METHOD 01/22/2025 10:58 AM [facility] LAB Creatinine 0.97 0.70 - 1.30 mg/dL LAB CHEMISTRY METHOD 01/22/2025 10:58 AM [facility] LAB eGFR 115 >=60 mL/min/1. 73m2 LAB CHEMISTRY METHOD 01/22/2025 10:58 AM [facility] LAB Comment:Calculation based on the Chronic Kidney Disease Epidemiology Collaboration (CKD-EPI) equation refit without adjustment for race. BUN/Creatinine Ratio 15.5 LAB CHEMISTRY METHOD 01/22/2025 10:58 AM [facility] LAB Calcium 10.2 8.5 - 10.5 mg/dL LAB CHEMISTRY METHOD 01/22/2025 10:58 AM [facility] LAB AST (SGOT) 17 10 - 42 unit/L LAB CHEMISTRY METHOD 01/22/2025 10:58 AM [facility] LAB ALT (SGPT) 44 10 - 60 unit/L LAB CHEMISTRY METHOD 01/22/2025 10:58 AM [facility] LAB Alkaline Phosphatase 91 42 - 121 unit/L LAB CHEMISTRY METHOD 01/22/2025 10:58 AM [facility] LAB Total Protein 7.8 6.0 - 8.0 g/dL LAB CHEMISTRY METHOD 01/22/2025 10:58 AM [facility] LAB Albumin 4.3 3.2 - 5.0 g/dL LAB CHEMISTRY METHOD 01/22/2025 10:58 AM [facility] LAB Total Bilirubin 0.8 0.0 - 1.4 mg/dL LAB CHEMISTRY METHOD 01/22/2025 10:58 AM [facility] LAB Blood Venous blood specimen / Unknown Venipuncture / Unknown 01/22/2025 7:00 AM EDT 01/22/2025 10:06 AM EDT Machelle Briones LAB BLOOD ORDERABLES Final Resul t [facility] [address] [place] [address], documented in this encounter Visit Diagnoses Diagnosis Other intermediate (current) drug therapy documented in this encounter Care Teams Underpresser Hand Relationship Specialty Start Date End Date Jacque Phan [address] [place] [address] PCP - General Family Medicine 01/24/25 documented as of this encounter
--- OUTSIDE RECORDS SUMMARY | 2025-06-07 02:57 | XMS_ITS | Patient Health Record ---
Author Organization [facility] Address [address] [place], [place] [id number] Care Team Providers Care Milking Machine Operator Name Role Phone NO, PCP Primary Care Provider [phone] [facility] Unavailable [phone] Reason For Referral No Information Problems Problem Type SNOMED Code ICD Code Onset Dates Problem Status W/U Status Risk Notes Problem Sheltered homelessness ([id number] ) Sheltered homelessness (Z59.01) Active confirmed Plan Of Treatment No Information Insurance Providers Payer Name Payer Address Payer Phone Subscriber Number Group Number Insured Name Patient Relationship to Insured Coverage Start Date Coverage End Date [place] Medicaid PCC [address] [employer], [place] [id number] Felipe Erickson Self - patient is the insured 3
--- OUTSIDE RECORDS SUMMARY | 2025-06-07 02:57 | XMS_ITS | Encounter Summary ---
Author Organization [employer] Address [address] [facility] 7t [place] [address] Care Team Providers Care Knife Cutter Name Role Phone Eufemia Hercules MD Primary Care Pro vider Kylee Burton RN Unavailable [phone] Leticia Lazcano Unavailable Gabriella Yin [facility] Unavailable [phone] Gena Dominique Unavailable Encounter Details Date Type Department Care Team (Late st Contact Info) Description 06/05/2025 Patient Outreach [facility] (C3) Department [address] [facility] 7 [place] [address] Gena Dominique Social History Tobacco [...] Upcoming Encounters Date Type Department Care Team ([facility] st Contact Info) Description 06/19/2025 9:00 AM EDT Office Visit [facility] MEDICINE [address] [place] [address] Kylie Forbes MD [address] [place] [address] documented as of this encounter Goals Goal Patient Goal Type Associated Problems Recent Progress Patient-Stated? Author Take your medication every day Lifestyle No Valerio Vazquez, GERONIMO documented as of this encounter Visit Diagnoses Not on filedocumented in this encounter Additional Health Concerns Assessment Noted Time PHQ-9 Depression Total Score: 9 01/06/20 25 4:35 PM EDT documented as of this encounter Care Teams Knife Cutter Relationship Specialty Start Date End Date Eufemia Hercules MD [address] [place] [address] PCP - General Internal Medicine 07/03/23 Kylee Burton RN [address] [place] [address] Registered Nurse Family Medicine 05/25/25 Leticia Lazcano 05/25/25 Gabriella Yin, [facility] Director Of Housing Behavioral Health 06/05/25 Gena Dominique Director Of Housing Behavioral Health 06/05/25 documented as of this encounter
--- OUTSIDE RECORDS SUMMARY | 2025-06-07 02:57 | XMS_ITS | Encounter Summary ---
Author Organization [employer] Address [address] [facility] 7t [place] [address] Care Team Providers Care Armature Varnisher Name Role Phone Eufemia Hercules MD Primary Care Pro vider Kylee Burton RN Unavailable [phone] Leticia Lazcano Unavailable Gabriella Yin [facility] Unavailable [phone] Gena Dominique Unavailable Encounter Details Date Type Department Care Team (Late st Contact Info) Description 06/05/2025 Patient Outreach [facility] MEDICINE [address] [place] [address] Eufemia Hercules MD [address] [place] [address] Social History Tobacco Use Types Packs/Day Years [...] Description 06/19/2025 9:00 AM EDT Office Visit [facility] MEDICINE [address] [place] [address] Kylie Forbes MD [address] [place] [address] documented as of this encounter Goals Goal Patient Goal Type Associated Problems Recent Progress Patient-Stated? Author Take your medication every day Lifestyle No Valerio Vazquez, RN documented as of this encounter Visit Diagnoses Not on filedocumented in this encounter Additional Health Concerns Assessment Noted Time PHQ-9 Depression Total Score: 9 01/06/20 25 4:35 PM EDT documented as of this encounter Care Teams Armature Varnisher Relationship Specialty Start Date End Date Eufemia Hercules MD [address] [place] [address] PCP - General Internal Medicine 07/03/23 Kylee Burton, GERONIMO [address] [place] [address] Registered Nurse Family Medicine 05/25/25 Leticia Lazcano 05/25/25 [facility] 06/05/25 Gena Dominique Floor [facility] 06/05/25 documented as of this encounter
--- OUTSIDE RECORDS SUMMARY | 2025-06-07 02:57 | XMS_ITS | Encounter Summary ---
Author Organization [employer] Address [address] [facility] 7t [place] [address] Care Team Providers Care Bookmobile Driver Name Role Phone Eufemia Hercules MD Primary Care Pro vider Kylee Burton RN Unavailable [phone] Leticia Lazcano Unavailable Gabriella Yin [facility] Unavailable [phone] Gena Dominique Unavailable Encounter Details Date Type Department Care Team (Late st Contact Info) Description 06/05/2025 Patient Outreach [facility] () Department 75 [facility] 7 [place] [address] Gabriella Yin, [facility] Social History Tobacco Use Types Packs/Day Years [...] as of this encounter Progress Notes * SHERI Duran - 06/05/2025 1:13 PM EDT Member admitted Justice[facility]06/02/25. Assigned IPSW is Juan F. Per EVS assigned to [facility]. documented in this encounter Plan of Treatment Upcoming Encounters Date Type Department Care Team (Late st Contact Info) Description 06/19/2025 9:00 AM EDT Office Visit [facility] MEDICINE [address] [place] [address] Kylie Forbes MD [address] [place] [address] documented as of this encounter Goals Goal Patient Goal Type Associated Problems Recent Progress Patient-Stated? Author Take your medication every day Lifestyle Valerio Green, GERONIMO documented as of this encounter Visit Diagnoses Not on filedocumented in this encounter Additional Health Concerns Assessment Noted Time PHQ-9 Depression Total Score: 9 01/06/20 4:35 PM EDT documented as of this encounter Care Teams Bookmobile Driver Relationship Specialty Start Date End Date Eufemia Hercules MD [address] [place] [address] PCP - General Internal Medicine 07/03/23 Kylee Burton, RN [address] [place] [address] Registered Nurse Family Medicine 05/25/25 Leticia Lazcano 05/25/25 Gabriella Yin, [facility] Digital Designer Behavioral Health 06/05/25 Gena Dominique Digital Designer Behavioral Health 06/05/25 documented as of this encounter
--- OUTSIDE RECORDS SUMMARY | 2025-06-07 02:57 | XMS_ITS | Encounter Summary ---
Author Organization [employer] Address 75 [facility] 7t [place] [address] Care Team Providers Care Breakfast Supervisor Name Role Phone Eufemia Hrecules MD Primary Care Pro vider Kylee Burton RN Unavailable [phone] Leticia Lazcano Unavailable Gabriella Yin [facility] Unavailable [phone] Gena Dominique Unavailable Encounter Details Date Type Department Care Team (Late st Contact Info) Description 06/05/2025 Patient Outreach [facility] (C3) Department 75 [facility] 7 [place] [address] Gena Dominique Social History Tobacco [...] as of this encounter Progress Notes * Gena Dominique - 06/05/2025 1:32 PM EDT Member is C3 Eligible, [facility] Admission, 06-02-2025, [facility] P[facility] Corbin GARCIA Next appt 06-19-2025 @9:00am In person, for hospital follow up with Kylie Ramirez * Gena Dominique - 06/05/2025 1:32 PM EDT Images from the original note were not included. Hunter, I am writing to inform you that (Member Name) Felipe Larios ()2005, (MMIS)[id number] was admitted to (Hospital/Facility) [facility]. We will be outreaching the member while they are admitted and will be hopefully working with them in our Behavioral Health Transitions of Care (BH LYUBOV) program. I have CC???d the Social Work Fox Farmer, (Theatre Director) Gabriella Yin who will be working with me on the case and who will be coordinating with the inpatient team. I also wanted to share some preliminary information with you: Admission date: 2024 Admission diagnosis: Additional clinical information from [facility]: Planned discharge date: Pending We will be in touch soon with more information as soon as we have it and to coordinate discharge appointments. Please let us know if there is any pertinent clinical information that we should share with the inpatient team. Thank marcos Dominique, [facility] She /Her/Hers BEHAVIORAL HEALTH TRANSITIONS OF CARE [facility], C3 ACO [email or web address] Health Hotline documented in this encounter Plan of Treatment Upcoming Encounters Date Type Department Care Team (Late st Contact Info) Description 06/19/2025 9:00 AM EDT Office Visit [facility] MEDICINE [address] [place] [phone] Kylie Forbes MD [address] [place] [address] documented as of this encounter Goals Goal Patient Goal Type Associated Problems Recent Progress Patient-Stated? Author Take your medication every day Lifestyle No Valerio Vazquez, RN documented as of this encounter Visit Diagnoses Not on filedocumented in this encounter Additional Health Concerns Assessment Noted Time PHQ-9 Depression Total Score: 9 01/06/20 25 4:35 PM EDT documented as of this encounter Care Teams Breakfast Supervisor Relationship Specialty Start Date End Date Eufemia Hercules MD [address] [place] [address] PCP - General Internal Medicine 07/03/23 Kylee Burton, GERONIMO [address] [place] [address] Registered Nurse Family Medicine 05/25/25 Leticia Lazcano 05/25/25 Gabriella Yin, [facility] Theatre Director Behavioral Health 06/05/25 Gena Dominique Theatre Director Behavioral Health 06/05/25 documented as of this encounter
--- OUTSIDE RECORDS SUMMARY | 2025-06-07 02:57 | XMS_ITS | Encounter Summary ---
Author Organization [employer] Address 75 [facility] 7t [place] [address] Care Team Providers Care Evidence Specialist Name Role Phone Eufemia Hercules MD Primary Care Pro vider Kylee Burton RN Unavailable [phone] Leticia Lazcano Unavailable Gabriella Yin [facility] Unavailable [phone] Gena Dominique Unavailable Encounter Details Date Type Department Care Team (Late st Contact Info) Description 06/06/2025 Patient Outreach [facility] MEDICINE [address] [place] [address] Eufemia Hercules MD [address] [place] [address] Social History Tobacco Use Types Packs/Day Years [...] Description 06/19/2025 9:00 AM EDT Office Visit [facility] MEDICINE [address] [place] [address] Kylie Forbes MD [address] [place] [address] documented as of this encounter Goals Goal Patient Goal Type Associated Problems Recent Progress Patient-Stated? Author Take your medication every day Lifestyle No Valerio Vazquez, RN documented as of this encounter Visit Diagnoses Not on filedocumented in this encounter Additional Health Concerns Assessment Noted Time PHQ-9 Depression Total Score: 9 01/06/20 25 4:35 PM EDT documented as of this encounter Care Teams Evidence Specialist Relationship Specialty Start Date End Date Eufemia Hercules MD [address] [place] [address] PCP - General Internal Medicine 07/03/23 Kylee Burton, GERONIMO [address] [place] [address] Registered Nurse Family Medicine 05/25/25 Leticia Lazcano 05/25/25 [facility] Custody Officer Behavioral Health 06/05/25 Gena Dominique Custody Officer Behavioral Health 06/05/25 documented as of this encounter
--- OUTSIDE RECORDS SUMMARY | 2025-06-07 02:57 | XMS_ITS | Encounter Summary ---
Author Organization [employer] Address 75 [facility] 7t [place] [address] Care Team Providers Care Bank Manager Name Role Phone Eufemia Hercules MD Primary Care Pro vider Kylee Burton RN Unavailable [phone] Leticia Lazcano Unavailable Gabriella Yin [facility] Unavailable [phone] Gena Dominique Unavailable Encounter Details Date Type Department Care Team (Late st Contact Info) Description 06/05/2025 Patient Outreach [facility] (C3) Department 75 [facility] 7 [place] [address] Gena Dominique Social History Tobacco [...] Upcoming Encounters Date Type Department Care Team ([facility] st Contact Info) Description 06/19/2025 9:00 AM EDT Office Visit [facility] MEDICINE [address] [place] [address] Kylie Forbes MD [address] [place] [address] documented as of this encounter Goals Goal Patient Goal Type Associated Problems Recent Progress Patient-Stated? Author Take your medication every day Lifestyle No Valerio Vazquez, GERONIMO documented as of this encounter Visit Diagnoses Not on filedocumented in this encounter Additional Health Concerns Assessment Noted Time PHQ-9 Depression Total Score: 9 01/06/20 25 4:35 PM EDT documented as of this encounter Care Teams Bank Manager Relationship Specialty Start Date End Date Eufemia Hercules MD [address] [place] [address] PCP - General Internal Medicine 07/03/23 Kylee Burton RN [address] [place] [address] Registered Nurse Family Medicine 05/25/25 Leticia Lazcano 05/25/25 Gabriella Yin, [facility] Coating Mixer Behavioral Health 06/05/25 Gena Dominique Coating Mixer Behavioral Health 06/05/25 documented as of this encounter
--- OUTSIDE RECORDS SUMMARY | 2025-06-07 02:57 | XMS_ITS ---
Author Organization [employer] Address 75 [facility] 7t [place] [address] Care Team Providers Care Spinning Bath Patroller Name Role Phone Eufemia Hercules MD Primary Care Pro vider Kylee Burton RN Unavailable [phone] Leticia Lazcano Unavailable Gabriella Yin [facility] Unavailable [phone] Gena Dominique Unavailable [facility] Complex Status:Outreach In Progress (Enrolling) Start date:05/25/2025 Enrollment reason:[facility] Overview Missing [facility] List- Pt admitted to [facility] on 05/22/25 for Bipolar d/o. Please outreach for enrollment. Please outreach facility. Case Team Name Relationship Phone Leticia Lazcano(Responsible Staff) [phone] Continued Care and Services Coordination
--- NOTE | 2025-06-07 07:28 | PC.NURSE ---
pt woke up to evaluated by . pt became increasingly agitated/yelling at MD/using profanity. bandaid applied to affected area. bleeding controlled. pt denied any SI/HI. pending discharge paperwork via .
--- NOTE | 2025-06-07 07:43 | ED.WOUNDLAC ---
HPI - Wound/Laceration General Chief Complaint: Wound/Laceration Stated Complaint: drug use? + finger lack Time Seen by Provider: 06/07/25 07:17 Source: patient Mode of arrival: ambulatory Limitations: no limitations History of Present Illness ED Provider: HPI narrative: Patient is 20 years of age, he presented with cutting his fingertip reportedly on the correct by but it is right 4th digit, reportedly patient was agitated and aggressive to staff by the time I evaluated him, he was sleeping, had no complaints but really did not want to engage with me, he states he is not interested in detox he reports that he has polysubstance use disorder, tetanus is unknown he is 20 years old should be up-to-date. Related Data Home Medications ?Medication ?Instructions ?Recorded ?Confirmed No Known Home Meds 02/26/25 02/26/25 Allergies Allergy/AdvReac Type Severity Reaction Status Date / Time bee pollen (bee stings) Allergy Unknown Verified 06/07/25 01:32 haloperidol (From Haldol) AdvReac Swelling Verified 06/07/25 01:32 Review of Systems Constitutional: Constitutional: Reports as per HPI [facility] Past Medical History Medical History Fentanyl use disorder, moderate Cocaine abuse Asthma Social History Social History Alcohol intake: current Alcohol intake frequency: 0-2 drinks per day Alcohol type: beer, wine and hard liquor Smoked in Last 30 Days: Yes Use of substances other than those prescribed or required for medical reasons: Yes Substance Use Type: Crack/Cocaine and Heroin Substance Use Frequency: Daily Last Used Substance: Just Prior to Admission Advance Directives: No Do you have a plan to hurt others: No Plan Physical Exam Vital Signs: Vital Signs: Last Vital Signs Temp 98 F 06/07/25 02:00 Pulse 62 06/07/25 04:00 Resp 15 06/07/25 07:32 BP 103/42 L 06/07/25 05:39 Pulse Ox 96 06/07/25 05:39 O2 Del Method Room Air 06/07/25 05:39 BMI result Body Mass Index 21.2 Const: Other: Gen: ?Sleepy and groggy but was arousable, examined fully HEENT: No blood in the airway, no facial trauma Neck: Supple, no LAD CV: RRR, no obvious murmurs appreciated Resp: ?No wheezing rales rhonchi no stridor moving air well Abd: ?No generalized tenderness MSK: FROM, strength 5/5 all extremities Skin: No bruising to the head and neck chest abdomen area, he has laceration to the right 4th digit, superficial, Band-Aid applied Neuro: ?Alert and oriented x3, moving upper and lower extremities symmetrically, no obvious facial asymmetry noted No SI or HI Medical Decision Making Medical Decision Making [facility] Narrative: Being 20 years old even though he has history of substance use disorder for school purposes he would has been up to date with his tetanus, I would not administer in ED, he really had a hard time with me getting examined, and he was somewhat aggressive but after explained to him my concerns that I have to examine him he allowed it, he is not interested in detox, no SI or HI, laceration to the finger is fairly minimal, Band-Aid applied, no other trauma noted, once he is more awake we will be planning for discharge Differential Diagnosis Differential Diagnoses: The differential diagnosis associated with the presentation includes (Head trauma, neck trauma, polysubstance use, FDP FDS laceration, bony fractures) Discharge Plan Discharge Clinical Impression: Laceration, Polysubstance use disorder Instructions: Polysubstance Use Disorder (ED) Additional Instructions: Please see my discharge instructions, your 20 years old you have already in the addiction, I recommend that you seek outpatient detox, finger cut is very superficial, keep clean with soap and water keep bandage in place until you clean your hand at home Because you 20 years old your tetanus status should be up-to-date, if you are interested in obtaining tetanus in the ER please let your RN no upon discharge for update of Tdap If you decide you want to stop or cut down on how much you?re using, you can call or walk into our outpatient Addiction Treatment office: [facility] (M-F 9am-5p) [address] [place] [address], [address] [phone] You may have been provided with safer injection?items, please take time to take care of YOU and your health. Use new supplies whenever possible to lessen the chances of infections and other illnesses.? ?If you need more supplies, please go [facility],? [address] [facility], [place] you can call or text to coordinate delivery of safer supplies. You were also provided a list of several treatment providers in the area.? If you experience any worsening symptoms you cannot control please return to the ED or call 911. Please follow up at your next appointment. Things to look out for are fevers, chest pain, shortness of breath, severe pain, dizziness, fainting or any other concerns. Prescriptions: No Action No Known Home Meds Print Language: Wolof
== END 2025-06-07 08:02 | disposition home or self-care (01) ==
PROVIDERS: Emergency Provider Emergency Medicine
DX: S61.214A Laceration without foreign body of right ring finger without damage to nail, initial encounter (principal); X58.XXXA Exposure to other specified factors, initial encounter; Y93.9 Activity, unspecified; Y92.9 Unspecified place or not applicable; F19.10 Other psychoactive substance abuse, uncomplicated
CPT/HCPCS: 99283; 99284